=== PATIENT | female | born 1960 | race American Indian/Alaskan Native ===

== ENCOUNTER 2017-06-23 15:38 | Emergency (ER) | payer MEDICAID, OTHER ==
[2017-06-23 16:02] VITALS: BP 138/69
[2017-06-23] MEDS ORDERED: Amoxicillin 500 MG Cap PO ONE (16:12)
--- NOTE | 2017-06-23 16:12 | EDM.PDOC ---
ED HPI GENERAL MEDICAL PROBLEM - General Chief Complaint: ENT Problem Stated Complaint: ears pain [id number] Time Seen by Provider: 06/23/17 16:08 Source of Information: Reports: Patient History Limitations: Reports: No Limitations - History of Present Illness INITIAL COMMENTS - FREE TEXT/NARRATIVE: 56 yo female presents with bilateral ear pain. States that she has been on an antibiotic x 1 month for ear infection but today the pain and drainage is worse. Also on cream for dermatitis but unsure of name, denies pain elsewhere. Onset: Unknown/Unsure Duration: Chronic, Constant, Getting Worse Location: Reports: Head Quality: Reports: Ache Severity: Moderate Improves with: Reports: None Worsens with: Reports: None Associated Symptoms: Reports: No Other Symptoms Ear Pain Score (Numeric/FACES): 5 - Related Data Allergies Allergy/AdvReac Type Severity Reaction Status Date / Time No Known Allergies Allergy Verified 06/23/17 15:58 Home Meds: Home Meds Albuterol Sulfate [Albuterol Sulfate HFA] 1 puff INH QID 12/27/13 [History] Fluticasone/Salmeterol [Advair 250-50 Diskus] 2 puff INH BID 12/27/13 [History] Gabapentin [Neurontin] 600 mg PO BID 02/01/15 [History] Albuterol [Proventil Neb Soln] 1 dose INH QID 07/27/15 [History] Loratadine [Claritin] 1 cap PO DAILY 05/08/16 [History] Nicotine Polacrilex [Nicotine Gum] 1 stick CHEW ASDIRECTED PRN 05/08/16 [History ] Nicotine [Nicoderm CQ] 1 pad TOP DAILY 05/08/16 [History] Omeprazole 1 cap PO DAILY 05/08/16 [History] Tiotropium [Spiriva HandiHaler] 1 cap INH DAILY 05/08/16 [History] Past Medical History - Past Health History Medical/Surgical History: Denies Medical/Surgical History Other HEENT History: Nearsighted Cardiovascular History: Reports: None Respiratory History: Reports: Asthma, COPD Gastrointestinal History: Reports: None Genitourinary History: Reports: None Musculoskeletal History: Reports: Arthritis Neurological History: Reports: Neuropathy, Peripheral Psychiatric History: Reports: None Endocrine/Metabolic History: Reports: None Hematologic History: Reports: Anemia Immunologic History: Reports: None Oncologic (Cancer) History: Reports: None Dermatologic History: Reports: None - Past Surgical History Head Surgeries/Procedures: Reports: None Cardiovascular Surgical History: Reports: None GI Surgical History: Reports: EGD Musculoskeletal Surgical History: Reports: None Social & Family History - Tobacco Use Smoking Status *Q: Never Smoker Years of Tobacco use: 30 Packs/Tins Daily: 0.5 Used Tobacco, but Quit: No Second Hand Smoke Exposure: Yes - Alcohol Use Days Per Week of Alcohol Use: 0 - Recreational Drug Use Recreational Drug Use: No Drug Use in Last 12 Months: No - Living Situation & Occupation Living situation: Reports: with Family Occupation: Retired ED ROS ENT - Review of Systems Review Of Systems: ROS reveals no pertinent complaints other than HPI. ED EXAM, ENT - Physical Exam Exam: See Below Exam Limited By: No Limitations General Appearance: Alert, WD/WN, No Apparent Distress Eye Exam: Bilateral Eye: Normal Inspection, PERRL Ears: Auricular Erythema, Auricular Tenderness, TM Bulging (left), TM Erythema ( bilaterally), TM Fluid (left ear with purulent drainage in canal and dull TM with purulent fluid behind TM) Nose: Normal Inspection, Normal Mucousa, No Blood Mouth/Throat: Normal Inspection, Normal Gums, Normal Lips, Normal Oropharynx, Normal Teeth Respiratory/Chest: No Respiratory Distress, Lungs Clear, Normal Breath Sounds, No Accessory Muscle Use, Chest Non-Tender Cardiovascular: Normal Peripheral Pulses, Regular Rate, Rhythm, No Edema, No Gallop, No JVD, No Murmur, No Rub Neurological: Alert, Oriented, Normal Cognition, Normal Gait Skin: Warm, Dry, Intact, Normal Color, No Rash Course - Vital Signs Last Recorded V/S: Last Vital Signs Temp 98.1 F 06/23/17 15:59 Pulse 70 06/23/17 15:59 Resp 16 06/23/17 15:59 BP 138/69 06/23/17 15:59 Pulse Ox 94 L 06/23/17 15:59 - Orders/Labs/Meds Meds: Medications Discontinued Medications Generic Name Dose Route Start Last Admin Trade Name Freq PRN Reason Stop Dose Admin Amoxicillin 1,000 mg 06/23/17 16:12 06/23/17 16:33 Amoxil PO 06/23/17 16:13 1,000 mg ONETIME ONE Administration Ibuprofen 800 mg 06/23/17 16:15 06/23/17 16:32 Motrin PO 06/23/17 16:16 800 mg ONETIME ONE Administration Departure - Departure Time of Disposition: 16:41 Disposition: Home, Self-Care 01 Condition: Good Clinical Impression: Otitis media Qualifiers: Otitis media type: suppurative Chronicity: chronic Laterality: bilateral Suppurative otitis media location: tubotympanic Qualified Code(s): 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 Continue to use the cream as directed. Follow up with your doctor this week if possible. Return for any worsening symptoms. Care Plan Goals: amoxicllin 1 gm # 30 Motrin 800 # 30
[2017-06-23] MEDS ORDERED: Ibuprofen 800 MG Tab PO ONE (16:15)
== END 2017-06-23 16:50 | disposition home or self-care (01) ==
LOC: DL.ED 15:38
DX: H66.13 Chronic tubotympanic suppurative otitis media, bilateral (principal); J44.9 Chronic obstructive pulmonary disease, unspecified; J45.909 Unspecified asthma, uncomplicated; D64.9 Anemia, unspecified; M19.90 Unspecified osteoarthritis, unspecified site; Z79.899 Other long term (current) drug therapy
CPT/HCPCS: 99282; A9270

== ENCOUNTER 2017-08-18 12:40 | Emergency (ER) | payer MEDICAID, OTHER ==
[2017-08-18 12:48] VITALS: BP 122/67
--- NOTE | 2017-08-18 13:04 | EDM.PDOC ---
ED HPI GENERAL MEDICAL PROBLEM - General Chief Complaint: ENT Problem Stated Complaint: COLD, TROUBLE BREATHING Time Seen by Provider: 08/18/17 13:04 Source of Information: Reports: Patient History Limitations: Reports: No Limitations - History of Present Illness INITIAL COMMENTS - FREE TEXT/NARRATIVE: 56 yo [place] Female c/o SOB and productive cough of green sputum X 1 week. Pt. states she stopped smoking 1 week ago however, she is exposed to 2nd hand smoke w/ low grade fever Onset Date: 08/11/17 Onset Time: 12:00 Duration: Day(s): Location: Reports: Chest Severity: Moderate Improves with: Reports: None Worsens with: Reports: None Context: Reports: Other (Hx. smoker and exposed to 2nd hand smoke) Associated Symptoms: Reports: cough w sputum (green sputum) - Related Data Allergies Allergy/AdvReac Type Severity Reaction Status Date / Time No Known Allergies Allergy Verified 06/23/17 15:58 Home Meds: Home Meds Albuterol Sulfate [Albuterol Sulfate HFA] 1 puff INH QID 12/27/13 [History] Fluticasone/Salmeterol [Advair 250-50 Diskus] 2 puff INH BID 12/27/13 [History] Gabapentin [Neurontin] 600 mg PO BID 02/01/15 [History] Albuterol [Proventil Neb Soln] 1 dose INH QID 07/27/15 [History] Loratadine [Claritin] 1 cap PO DAILY 05/08/16 [History] Nicotine Polacrilex [Nicotine Gum] 1 stick CHEW ASDIRECTED PRN 05/08/16 [History ] Nicotine [Nicoderm CQ] 1 pad TOP DAILY 05/08/16 [History] Omeprazole 1 cap PO DAILY 05/08/16 [History] Tiotropium [Spiriva HandiHaler] 1 cap INH DAILY 05/08/16 [History] Past Medical History - Past Health History Medical/Surgical History: Denies Medical/Surgical History HEENT History: Reports: Impaired Vision Other HEENT History: Nearsighted Cardiovascular History: Reports: None Respiratory History: Reports: Asthma, COPD Gastrointestinal History: Reports: None Genitourinary History: Reports: None Musculoskeletal History: Reports: Arthritis Neurological History: Reports: Neuropathy, Peripheral Psychiatric History: Reports: None Endocrine/Metabolic History: Reports: None Hematologic History: Reports: Anemia Immunologic History: Reports: None Oncologic (Cancer) History: Reports: None Dermatologic History: Reports: None - Past Surgical History Head Surgeries/Procedures: Reports: None Cardiovascular Surgical History: Reports: None GI Surgical History: Reports: EGD Musculoskeletal Surgical History: Reports: None Social & Family History - Family History Family Medical History: Noncontributory - Tobacco Use Smoking Status *Q: Former Smoker Years of Tobacco use: 30 Packs/Tins Daily: 0.5 Used Tobacco, but Quit: Yes Month Tobacco Last Used: ? Second Hand Smoke Exposure: Yes - Caffeine Use Caffeine Use: Reports: Coffee - Alcohol Use Days Per Week of Alcohol Use: 0 - Recreational Drug Use Recreational Drug Use: No Drug Use in Last 12 Months: No - Living Situation & Occupation Living situation: Reports: with Family Occupation: Retired ED ROS ENT - Review of Systems Review Of Systems: See Below Constitutional: Reports: No Symptoms HEENT: Reports: No Symptoms Respiratory: Reports: Shortness of Breath, Cough, Sputum Cardiovascular: Reports: No Symptoms Endocrine: Reports: No Symptoms GI/Abdominal: Reports: No Symptoms : Reports: No Symptoms Musculoskeletal: Reports: No Symptoms Skin: Reports: No Symptoms Neurological: Reports: No Symptoms Psychiatric: Reports: No Symptoms Hematologic/Lymphatic: Reports: No Symptoms Immunologic: Reports: No Symptoms ED EXAM, ENT - Physical Exam Exam: See Below Exam Limited By: No Limitations General Appearance: Alert, WD/WN, No Apparent Distress Eye Exam: Bilateral Eye: PERRL Ears: Normal External Exam Nose: Normal Inspection Mouth/Throat: Normal Inspection, Normal Gums Head: Atraumatic Neck: Normal Inspection, Supple Respiratory/Chest: No Accessory Muscle Use, Decreased Breath Sounds, Rhonchi Cardiovascular: Normal Peripheral Pulses GI/Abdominal: Normal Bowel Sounds Back: Normal Inspection Extremities: Normal Inspection Neurological: Alert, Oriented, CN II-XII Intact Psychiatric: Normal Affect, Normal Mood Skin: Warm, Dry, Intact Lymphatic: No Adenopathy Course - Vital Signs Last Recorded V/S: Last Vital Signs Temp 36.6 C 08/18/17 12:46 Pulse 80 08/18/17 12:46 Resp 18 08/18/17 12:46 BP 122/67 08/18/17 12:46 Pulse Ox 95 08/18/17 12:46 - Orders/Labs/Meds Orders: Active Orders 24 hr Category Date Time Status RT Aerosol Therapy [RC] ASDIRECTED Care 08/18/17 13:10 Active LACTIC ACID [CHEM] Stat Lab 08/18/17 13:18 Received Labs: Laboratory Tests 08/18/17 Range/Units 13:18 WBC 7.9 (5.0-10.0) 10^3/uL RBC 4.86 (4.2-5.4) 10^6/uL Hgb 14.3 (12.0-16.0) g/dL Hct 43.8 (37.0-47.0) % MCV 90.1 (80-100) fL MCH 29.4 (27.0-34.0) pg MCHC 32.6 L (33.0-35.0) g/dL Plt Count 307 (150-450) 10^3/uL Neut % (Auto) 65.8 (42.2-75.2) % Lymph % (Auto) 19.9 L (20.5-50.1) % [place] % (Auto) 7.0 (2-8) % Eos % (Auto) 6.9 H (1.0-3.0) % Baso % (Auto) 0.4 (0.0-1.0) % Meds: Medications Discontinued Medications Generic Name Dose Route Start Last Admin Trade Name Freq PRN Reason Stop Dose Admin Albuterol/Ipratropium 3 ml 08/18/17 13:09 Duoneb 3.0-0.5 Mg/3 Ml NEB 08/18/17 13:10 ONETIME ONE Guaifenesin 600 mg 08/18/17 13:09 08/18/17 13:34 Mucinex PO 08/18/17 13:10 600 mg ONETIME ONE Administration Departure - Departure Time of Disposition: 13:43 Disposition: Home, Self-Care 01 Condition: Good Clinical Impression: Bronchitis, Second hand tobacco smoke exposure - Discharge Information Forms: ED Department Discharge Additional Instructions: Increase intake of Fluids ( Juice / Water) Stop all exposure to Cigarette smoke Take the Medications prescribed as directed: ZITHROMAX PACK USE DIRECTED x 5 days MUCINEX 600mg BID # 30 F/U w/ PCp - My Orders Last 24 Hours: My Active Orders 08/18/17 13:10 RT Aerosol Therapy [RC] ASDIRECTED 08/18/17 13:18 LACTIC ACID [CHEM] Stat - Assessment/Plan Last 24 Hours: My Active Orders 08/18/17 13:10 RT Aerosol Therapy [RC] ASDIRECTED 08/18/17 13:18 LACTIC ACID [CHEM] Stat
[2017-08-18] MEDS ORDERED: guaiFENesin 600 MG Tab.ER PO ONE (13:09)
[2017-08-18] MEDS ORDERED: Albuterol/Ipratropium 3.0-0.5 MG/3 ML Neb Soln NEB ONE (13:09)
== END 2017-08-18 13:53 | disposition home or self-care (01) ==
LOC: DL.ED 12:40
DX: J40 Bronchitis, not specified as acute or chronic (principal); J44.9 Chronic obstructive pulmonary disease, unspecified; Z77.22 Contact with and (suspected) exposure to environmental tobacco smoke (acute) (chronic); Z79.899 Other long term (current) drug therapy; Z87.891 Personal history of nicotine dependence
CPT/HCPCS: 36415; 71020; 83605; 85025; 94640; 99285; A9270

== ENCOUNTER 2017-12-06 19:30 | Emergency (ER) | payer MEDICAID, OTHER ==
[2017-12-06 20:01] VITALS: BP 114/65
[2017-12-06] MEDS ORDERED: Clindamycin HCl 150 MG Cap PO ONE (21:26)
--- NOTE | 2017-12-06 21:26 | EDM.PDOC ---
ED HPI GENERAL MEDICAL PROBLEM - General Chief Complaint: Upper Extremity Injury/Pain Stated Complaint: [id number] SWOLLEN HAND Time Seen by Provider: 12/06/17 20:15 Source of Information: Reports: Patient History Limitations: Reports: No Limitations - History of Present Illness INITIAL COMMENTS - FREE TEXT/NARRATIVE: C/o pain to right hand with redness and swelling tonight, no fever. Unsure what she hit, thinks counter. Denies prior hx of skin infection. Pain from fith finger to mid forearm Right Hand Pain Score (Numeric/FACES): 7 - Related Data Allergies Allergy/AdvReac Type Severity Reaction Status Date / Time No Known Allergies Allergy Verified 12/06/17 20:02 Home Meds: Home Meds Albuterol Sulfate [Albuterol Sulfate HFA] 1 puff INH QID PRN 12/27/13 [History] Gabapentin [Neurontin] 600 mg PO BID 02/01/15 [History] Albuterol [Proventil Neb Soln] 1 dose INH QID PRN 07/27/15 [History] Loratadine [Claritin] 1 cap PO DAILY 05/08/16 [History] Nicotine Polacrilex [Nicotine Gum] 1 stick CHEW ASDIRECTED PRN 05/08/16 [History ] Diclofenac Sodium [Voltaren] 1 tab PO BEDTIME 12/06/17 [History] buPROPion HCl [Wellbutrin Xl] 1 tab PO DAILY 12/06/17 [History] Past Medical History - Past Health History Medical/Surgical History: Denies Medical/Surgical History HEENT History: Reports: Impaired Vision Other HEENT History: Nearsighted Cardiovascular History: Reports: None Respiratory History: Reports: Asthma, COPD Gastrointestinal History: Reports: None Genitourinary History: Reports: None Musculoskeletal History: Reports: Arthritis Neurological History: Reports: Neuropathy, Peripheral Psychiatric History: Reports: None Endocrine/Metabolic History: Reports: None Hematologic History: Reports: Anemia Immunologic History: Reports: None Oncologic (Cancer) History: Reports: None Dermatologic History: Reports: None - Past Surgical History Head Surgeries/Procedures: Reports: None Cardiovascular Surgical History: Reports: None GI Surgical History: Reports: EGD Musculoskeletal Surgical History: Reports: None Social & Family History - Family History Family Medical History: Noncontributory - Tobacco Use Smoking Status *Q: Former Smoker Years of Tobacco use: 30 Packs/Tins Daily: 0.5 Used Tobacco, but Quit: Yes Month Tobacco Last Used: october, Second Hand Smoke Exposure: Yes - Caffeine Use Caffeine Use: Reports: Coffee, Energy Drinks, Soda - Alcohol Use Days Per Week of Alcohol Use: 0 - Recreational Drug Use Recreational Drug Use: No Drug Use in Last 12 Months: No - Living Situation & Occupation Living situation: Reports: with Family Occupation: Retired Review of Systems - Review of Systems Review Of Systems: ROS reveals no pertinent complaints other than HPI. ED EXAM, GENERAL - Physical Exam Exam: See Below Exam Limited By: No Limitations General Appearance: Alert, Mild Distress Eye Exam: Bilateral Eye: EOMI Ears: Normal External Exam Nose: Normal Inspection Throat/Mouth: Normal Inspection Respiratory/Chest: No Respiratory Distress Cardiovascular: Regular Rate, Rhythm Extremities: Arm Pain, Increased Warmth (5th finger) Neurological: Alert, Oriented, Normal Cognition Skin Exam: Warm, Dry, Erythema (right 5th finger and lateral hand), Wound/ Incision (pin point dark scabbed area with surrounding erythema lateral mid 5th finger.) Course - Vital Signs Last Recorded V/S: Last Vital Signs Temp 98.4 F 12/06/17 19:52 Pulse 81 12/06/17 19:52 Resp 18 12/06/17 19:52 BP 114/65 12/06/17 19:52 Pulse Ox 93 L 12/06/17 19:52 - Orders/Labs/Meds Meds: Medications Discontinued Medications Generic Name Dose Route Start Last Admin Trade Name Talatq PRN Reason Stop Dose Admin Clindamycin HCl 300 mg 12/06/17 21:26 12/06/17 21:33 Cleocin PO 12/06/17 21:27 300 mg ONETIME ONE Administration Departure - Departure Time of Disposition: 21:24 Disposition: Home, Self-Care 01 Condition: Good Clinical Impression: Cellulitis of finger of right hand - Discharge Information Instructions: Cellulitis, Adult, [id number] Forms: ED Department Discharge Additional Instructions: Clindamycin 300mg 4 times daily for one week tylenol or ibuprofen for discomfort elevate extremity warm soak to hand 4 times daily recheck in clinic on Saturday, sooner if increased swelling and redness.
== END 2017-12-06 22:05 | disposition home or self-care (01) ==
LOC: DL.ED 19:30
DX: L03.011 Cellulitis of right finger (principal); J44.9 Chronic obstructive pulmonary disease, unspecified; Z79.899 Other long term (current) drug therapy; Z79.01 Long term (current) use of anticoagulants; Z87.891 Personal history of nicotine dependence
CPT/HCPCS: 73120; 99283; A9270

== ENCOUNTER 2018-04-13 19:24 | Emergency (ER) | payer OTHER, MEDICAID ==
[2018-04-13 19:39] VITALS: BP 121/68
[2018-04-13] MEDS ORDERED: Silver Sulfadiazine 1% Crm 50 GM Tube TOP ONE (19:43)
[2018-04-13] MEDS ORDERED: Acetaminophen/HYDROcodone 325-10 MG Tab PO ONE (19:43)
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
== END 2018-04-13 20:00 | disposition home or self-care (01) ==
LOC: DL.ED 19:24
DX: T21.21XA Burn of second degree of chest wall, initial encounter (principal); T31.0 Burns involving less than 10% of body surface; J44.9 Chronic obstructive pulmonary disease, unspecified; M19.90 Unspecified osteoarthritis, unspecified site; Z79.899 Other long term (current) drug therapy; Z88.8 Allergy status to other drugs, medicaments and biological substances; Z87.891 Personal history of nicotine dependence; X12.XXXA Contact with other hot fluids, initial encounter; Y99.0 Civilian activity done for income or pay
CPT/HCPCS: 16025; 99283; A9270-GY

== ENCOUNTER 2018-11-08 22:21 | Emergency (ER) | payer MEDICAID, OTHER ==
[2018-11-08 22:39] VITALS: BP 123/73
[2018-11-08] MEDS ORDERED: Aspirin 81 MG Tab.Chew PO ONE (23:42)
[2018-11-08 23:49] LABS: ANION GAP 13.6; CHLORIDE,CL 103 mmol/L (101-111); SODIUM,NA 139 mmol/L (135-145)
--- NOTE | 2018-11-09 00:18 | EDM.PDOC ---
ED HPI GENERAL MEDICAL PROBLEM - General Chief Complaint: Chest Pain Stated Complaint: NOT FEELING GOOD Time Seen by Provider: 11/09/18 00:18 Source of Information: Reports: Patient History Limitations: Reports: No Limitations - History of Present Illness INITIAL COMMENTS - FREE TEXT/NARRATIVE: ED with c/o "not feeling good" Multiple vague complaints some cough, left arm pain, then legs hurting, achy feeling, feeling hard to breath at times. feels anxious wondering if could be panic attack. Also felt sweaty earlier in day. Symptoms most of day, coughed more when trying to lie down around 6pm. States also trying to quit smoking. No nausea or vomiting. No diarrhea. No ENT c/o. Denied chest pain. left arm Pain Score (Numeric/FACES): 7 - Related Data Allergies Allergy/AdvReac Type Severity Reaction Status Date / Time naproxen Allergy Indigestion Verified 11/08/18 22:45 Home Meds: Home Meds Albuterol Sulfate [Albuterol Sulfate HFA] 1 puff INH QID PRN 12/27/13 [History] Gabapentin [Neurontin] 600 mg PO BID 02/01/15 [History] Albuterol [Proventil Neb Soln] 1 dose INH QID PRN 07/27/15 [History] Loratadine [Claritin] 1 cap PO DAILY 05/08/16 [History] Nicotine Polacrilex [Nicotine Gum] 1 stick CHEW ASDIRECTED PRN 05/08/16 [History ] Diclofenac Sodium [Voltaren] 1 tab PO BEDTIME 12/06/17 [History] buPROPion HCl [Wellbutrin Xl] 1 tab PO DAILY 12/06/17 [History] Past Medical History - Past Health History Medical/Surgical History: Denies Medical/Surgical History HEENT History: Reports: Impaired Vision Other HEENT History: Nearsighted Cardiovascular History: Reports: Other (See Below) Other Cardiovascular History: recent stress test 10/30/18 Respiratory History: Reports: Asthma, COPD Gastrointestinal History: Reports: None Genitourinary History: Reports: None Musculoskeletal History: Reports: Arthritis Neurological History: Reports: Neuropathy, Peripheral Psychiatric History: Reports: None Endocrine/Metabolic History: Reports: None Hematologic History: Reports: Anemia Immunologic History: Reports: None Oncologic (Cancer) History: Reports: None Dermatologic History: Reports: None - Infectious Disease History Infectious Disease History: Reports: None - Past Surgical History Head Surgeries/Procedures: Reports: None Cardiovascular Surgical History: Reports: None GI Surgical History: Reports: EGD Musculoskeletal Surgical History: Reports: None Social & Family History - Family History Family Medical History: Noncontributory - Tobacco Use Smoking Status *Q: Former Smoker Years of Tobacco use: 30 Packs/Tins Daily: 1.5 Used Tobacco, but Quit: Yes Month/Year Tobacco Last Used: Oct, 2018 Second Hand Smoke Exposure: No - Caffeine Use Caffeine Use: Reports: None - Recreational Drug Use Recreational Drug Use: No - Living Situation & Occupation Living situation: Reports: with Family Occupation: Retired ED ROS GENERAL - Review of Systems Review Of Systems: ROS reveals no pertinent complaints other than HPI. ED EXAM, GENERAL - Physical Exam Exam: See Below Exam Limited By: No Limitations General Appearance: Alert, No Apparent Distress Eye Exam: Bilateral Eye: EOMI Ears: Normal External Exam, Normal TMs Nose: Normal Inspection Throat/Mouth: Normal Inspection Head: Atraumatic, Normocephalic Neck: Normal Inspection Respiratory/Chest: No Respiratory Distress, Lungs Clear, Normal Breath Sounds Cardiovascular: Normal Peripheral Pulses, Other (telemetry sinus with rare PVC) GI/Abdominal: Normal Bowel Sounds, Soft, Non-Tender Back Exam: Full Range of Motion Extremities: Normal Inspection, Normal Range of Motion. No: Pedal Edema Neurological: Alert, Oriented, Normal Cognition Psychiatric: Anxious Skin Exam: Warm, Dry, Intact, Normal Color EKG INTERPRETATION Rhythm: NSR Course - Vital Signs Last Recorded V/S: Last Vital Signs Temp 98.4 F 11/08/18 22:38 Pulse 74 11/08/18 22:38 Resp 20 11/08/18 22:38 BP 123/73 11/08/18 22:38 Pulse Ox 98 11/08/18 22:38 - Orders/Labs/Meds Orders: Active Orders 24 hr Category Date Time Status EKG 12 Lead [EKG Documentation Completion] [RC] ROUTINE Care 11/08/18 23:18 Active Labs: Laboratory Tests 11/08/18 11/08/18 11/08/18 Range/Units 23:25 23:25 23:25 WBC 7.6 (5.0-10.0) 10^3/uL RBC 4.65 (4.2-5.4) 10^6/uL Hgb 13.9 (12.0-16.0) g/dL Hct 41.9 (37.0-47.0) % MCV 90.1 (80-100) fL MCH 29.9 (27.0-34.0) pg MCHC 33.2 (33.0-35.0) g/dL Plt Count 295 (150-450) 10^3/uL Neut % (Auto) 62.1 (42.2-75.2) % Lymph % (Auto) 22.7 (20.5-50.1) % [place] % (Auto) 9.6 H (2-8) % Eos % (Auto) 5.1 H (1.0-3.0) % Baso % (Auto) 0.5 (0.0-1.0) % Sodium 139 (135-145) mmol/L Potassium 3.6 (3.6-5.0) mmol/L Chloride 103 (101-111) mmol/L Carbon Dioxide 26.0 (21.0-31.0) mmol/L Anion Gap 13.6 BUN 14 (7-18) mg/dL Creatinine 0.9 (0.6-1.3) mg/dL Est Cr Clr Drug Dosing 63.01 mL/min Estimated GFR (MDRD) > 60 BUN/Creatinine Ratio 15.55 Glucose 123 H (74-105) mg/dL Calcium 8.9 (8.4-10.2) mg/dl Total Bilirubin 0.5 (0.2-1.0) mg/dL AST 18 (10-42) IU/L ALT 11 (10-60) IU/L Alkaline Phosphatase 57 (42-121) IU/L CK-MB (CK-2) 1.80 (0.4-4.7) ng/mL Troponin I < 0.02 (0.00-0.02) ng/ml Total Protein 7.1 (6.7-8.2) g/dl Albumin 3.7 (3.2-5.5) g/dl Globulin 3.4 Albumin/Globulin Ratio 1.09 Meds: Medications Discontinued Medications Generic Name Dose Route Start Last Admin Trade Name Freq PRN Reason Stop Dose Admin Aspirin 324 mg 11/08/18 23:42 11/08/18 23:59 Aspirin PO 11/08/18 23:43 324 mg ONETIME ONE Administration - Re-Assessments/Exams Free Text/Narrative Re-Assessment/Exam: Dozing on side while awaiting lab studies, arouses easily. Labs reviewed with patient. Departure - Departure Time of Disposition: 00:29 Disposition: Home, Self-Care 01 Condition: Good Clinical Impression: Anxiety, Myalgia - Discharge Information *PRESCRIPTION DRUG MONITORING PROGRAM REVIEWED*: No *COPY OF PRESCRIPTION DRUG MONITORING REPORT IN PATIENT TEO: No Instructions: Nonspecific Chest Pain, [id number] Referrals: Alma Avendano PA-C [Primary Care Provider] - Forms: ED Department Discharge Additional Instructions: light activity follow up in clinic this coming week urgent follow up if severe chest pain , dizziness home medications as directed by primary care - My Orders Last 24 Hours: My Active Orders 11/08/18 23:18 EKG 12 Lead [EKG Documentation Completion] [RC] ROUTINE - Assessment/Plan Last 24 Hours: My Active Orders 11/08/18 23:18 EKG 12 Lead [EKG Documentation Completion] [RC] ROUTINE
== END 2018-11-09 00:46 | disposition home or self-care (01) ==
LOC: DL.ED 22:21
DX: F41.9 Anxiety disorder, unspecified (principal); M79.10 Myalgia, unspecified site; Z88.8 Allergy status to other drugs, medicaments and biological substances; Z79.899 Other long term (current) drug therapy; Z87.891 Personal history of nicotine dependence
CPT/HCPCS: 36415; 80053; 82553; 84484; 85025; 87804; 93005; 99285; A9270

== ENCOUNTER 2019-01-28 20:04 | Emergency (ER) | payer MEDICAID, OTHER ==
[2019-01-28] MEDS ORDERED: Naloxone 2 MG/2 ML Syringe IVPUSH ONE ×2 (20:41→22:06)
--- NOTE | 2019-01-28 20:50 | EDM.PDOC ---
ED HPI GENERAL MEDICAL PROBLEM - General Chief Complaint: General Stated Complaint: NOT FEELING WELL, VERY TIRED AND THROWING UP Time Seen by Provider: 01/28/19 20:40 Source of Information: Reports: Patient, Family, RN History Limitations: Reports: No Limitations - History of Present Illness INITIAL COMMENTS - FREE TEXT/NARRATIVE: ED with c/o nausea and vomiting x 10 starting around 6pm, feeling tired. No chest pain, no difficutly with breathing. Medication list reviewed. Patient started suboxone today prescribed by [facility] in [facility]. First dose at 430pm. Patient states initiated because "they thought I was getting addicted to medication for leg pain". States previous last pain medication was 3 weeks ago. - Related Data Allergies Allergy/AdvReac Type Severity Reaction Status Date / Time naproxen Allergy Indigestion Verified 01/28/19 20:10 Home Meds: Home Meds Albuterol Sulfate [Albuterol Sulfate HFA] 1 puff INH QID PRN 12/27/13 [History] Gabapentin [Neurontin] 600 mg PO BID 02/01/15 [History] Albuterol [Proventil Neb Soln] 1 dose INH QID PRN 07/27/15 [History] Loratadine [Claritin] 1 cap PO DAILY 05/08/16 [History] Nicotine Polacrilex [Nicotine Gum] 1 stick CHEW ASDIRECTED PRN 05/08/16 [History ] buPROPion HCl [Wellbutrin Xl] 1 tab PO DAILY 12/06/17 [History] Past Medical History - Past Health History Medical/Surgical History: Denies Medical/Surgical History HEENT History: Reports: Impaired Vision Other HEENT History: Nearsighted Cardiovascular History: Reports: Other (See Below) Other Cardiovascular History: recent stress test 10/30/18 Respiratory History: Reports: Asthma, COPD Gastrointestinal History: Reports: None Genitourinary History: Reports: None Musculoskeletal History: Reports: Arthritis Neurological History: Reports: Neuropathy, Peripheral Psychiatric History: Reports: None Endocrine/Metabolic History: Reports: None Hematologic History: Reports: Anemia Immunologic History: Reports: None Oncologic (Cancer) History: Reports: None Dermatologic History: Reports: None - Infectious Disease History Infectious Disease History: Reports: None - Past Surgical History Head Surgeries/Procedures: Reports: None Cardiovascular Surgical History: Reports: None GI Surgical History: Reports: EGD Musculoskeletal Surgical History: Reports: None Social & Family History - Family History Family Medical History: Noncontributory - Caffeine Use Caffeine Use: Reports: None - Living Situation & Occupation Living situation: Reports: with Family Occupation: Retired ED ROS GENERAL - Review of Systems Review Of Systems: ROS reveals no pertinent complaints other than HPI. ED EXAM, GENERAL - Physical Exam Exam: See Below Exam Limited By: No Limitations General Appearance: Lethargic Eye Exam: Bilateral Eye: EOMI (4), PERRL Ear Exam: Bilateral Ear: TM normal Nose: Normal Inspection Throat/Mouth: Normal Inspection Head: Atraumatic, Normocephalic Neck: Normal Inspection Respiratory/Chest: No Respiratory Distress, Lungs Clear, Decreased Breath Sounds Cardiovascular: Other (Irregular, frequent PVC's, bigemeny and trigemeny, ) GI/Abdominal: Normal Bowel Sounds, Soft Back Exam: Normal Inspection Neurological: Oriented, Normal Cognition Psychiatric: Flat Affect Skin Exam: Warm, Dry, Intact Course - Vital Signs Last Recorded V/S: Last Vital Signs Temp 98.2 F 01/29/19 00:20 Pulse 77 01/29/19 00:20 Resp 18 01/29/19 00:20 BP 118/82 01/29/19 00:20 Pulse Ox 92 L 01/29/19 00:20 - Orders/Labs/Meds Orders: Active Orders 24 hr Category Date Time Status EKG Documentation Completion [RC] URGENT Care 01/28/19 20:23 Active Labs: Laboratory Tests 01/28/19 01/28/19 01/28/19 Range/Units 20:36 20:36 20:36 WBC 9.3 (5.0-10.0) 10^3/uL RBC 4.88 (4.2-5.4) 10^6/uL Hgb 14.3 (12.0-16.0) g/dL Hct 44.2 (37.0-47.0) % MCV 90.6 (80-100) fL MCH 29.3 (27.0-34.0) pg MCHC 32.4 L (33.0-35.0) g/dL Plt Count 255 (150-450) 10^3/uL Neut % (Auto) 82.0 H (42.2-75.2) % Lymph % (Auto) 9.9 L (20.5-50.1) % [place] % (Auto) 5.6 (2-8) % Eos % (Auto) 2.0 (1.0-3.0) % Baso % (Auto) 0.5 (0.0-1.0) % Sodium 139 (135-145) mmol/L Potassium 3.9 (3.6-5.0) mmol/L Chloride 102 (101-111) mmol/L Carbon Dioxide 27.0 (21.0-31.0) mmol/L Anion Gap 13.9 BUN 15 (7-18) mg/dL Creatinine 0.8 (0.6-1.3) mg/dL Est Cr Clr Drug Dosing 67.29 mL/min Estimated GFR (MDRD) > 60 BUN/Creatinine Ratio 18.75 Glucose 145 H (74-105) mg/dL Calcium 9.4 (8.4-10.2) mg/dl Total Bilirubin 0.6 (0.2-1.0) mg/dL AST 20 (10-42) IU/L ALT 13 (10-60) IU/L Alkaline Phosphatase 61 (42-121) IU/L CK-MB (CK-2) 2.10 (0.4-4.7) ng/mL Troponin I < 0.02 (0.00-0.02) ng/ml Total Protein 8.0 (6.7-8.2) g/dl Albumin 4.3 (3.2-5.5) g/dl Globulin 3.7 Albumin/Globulin Ratio 1.16 Urine Color (YELLOW) Urine Appearance (CLEAR) Urine pH (5.0-9.0) Ur Specific [place] (1.005-1.030) Urine Protein (NEGATIVE) Urine Glucose (UA) (NEGATIVE) Urine Ketones (NEGATIVE) Urine Occult Blood (NEGATIVE) Urine Nitrite (NEGATIVE) Urine Bilirubin (NEGATIVE) Urine Urobilinogen (0.2-1.0) mg/dL Ur Leukocyte Esterase (NEGATIVE) Urine RBC /HPF Urine WBC (0-5/HPF) /HPF Ur Epithelial Cells /HPF Amorphous Sediment (0/HPF) /HPF Urine Bacteria (0-FEW/HPF) /HPF Urine Mucus /LPF Urine Opiates Screen (NEGATIVE) Ur Oxycodone Screen (NEGATIVE) Urine Methadone Screen (NEGATIVE) Ur Barbiturates Screen (NEGATIVE) U Tricyclic Antidepress (NEGATIVE) Ur Phencyclidine Scrn (NEGATIVE) Ur Amphetamine Screen (NEGATIVE) U Methamphetamines Scrn (NEGATIVE) Urine MDMA Screen (NEGATIVE) U Benzodiazepines Scrn (NEGATIVE) Urine Cocaine Screen (NEGATIVE) U Marijuana (THC) Screen (NEGATIVE) 01/28/19 01/28/19 Range/Units 21:59 21:59 WBC (5.0-10.0) 10^3/uL RBC (4.2-5.4) 10^6/uL Hgb (12.0-16.0) g/dL Hct (37.0-47.0) % MCV (80-100) fL MCH (27.0-34.0) pg MCHC (33.0-35.0) g/dL Plt Count (150-450) 10^3/uL Neut % (Auto) (42.2-75.2) % Lymph % (Auto) (20.5-50.1) % [place] % (Auto) (2-8) % Eos % (Auto) (1.0-3.0) % Baso % (Auto) (0.0-1.0) % Sodium (135-145) mmol/L Potassium (3.6-5.0) mmol/L Chloride (101-111) mmol/L Carbon Dioxide (21.0-31.0) mmol/L Anion Gap BUN (7-18) mg/dL Creatinine (0.6-1.3) mg/dL Est Cr Clr Drug Dosing mL/min Estimated GFR (MDRD) BUN/Creatinine Ratio Glucose (74-105) mg/dL Calcium (8.4-10.2) mg/dl Total Bilirubin (0.2-1.0) mg/dL AST (10-42) IU/L ALT (10-60) IU/L Alkaline Phosphatase (42-121) IU/L CK-MB (CK-2) (0.4-4.7) ng/mL Troponin I (0.00-0.02) ng/ml Total Protein (6.7-8.2) g/dl Albumin (3.2-5.5) g/dl Globulin Albumin/Globulin Ratio Urine Color Yellow (YELLOW) Urine Appearance Clear (CLEAR) Urine pH 6.0 (5.0-9.0) Ur Specific [place] >= 1.030 (1.005-1.030) Urine Protein Trace H (NEGATIVE) Urine Glucose (UA) Negative (NEGATIVE) Urine Ketones Negative (NEGATIVE) Urine Occult Blood Trace-intact H (NEGATIVE) Urine Nitrite Negative (NEGATIVE) Urine Bilirubin Negative (NEGATIVE) Urine Urobilinogen 0.2 (0.2-1.0) mg/dL Ur Leukocyte Esterase Negative (NEGATIVE) Urine RBC 0-5 /HPF Urine WBC 0-5 (0-5/HPF) /HPF Ur Epithelial Cells Rare /HPF Amorphous Sediment Rare (0/HPF) /HPF Urine Bacteria Rare (0-FEW/HPF) /HPF Urine Mucus Rare /LPF Urine Opiates Screen Negative (NEGATIVE) Ur Oxycodone Screen Negative (NEGATIVE) Urine Methadone Screen Negative (NEGATIVE) Ur Barbiturates Screen Negative (NEGATIVE) U Tricyclic Antidepress Negative (NEGATIVE) Ur Phencyclidine Scrn Negative (NEGATIVE) Ur Amphetamine Screen Negative (NEGATIVE) U Methamphetamines Scrn Negative (NEGATIVE) Urine MDMA Screen Negative (NEGATIVE) U Benzodiazepines Scrn Negative (NEGATIVE) Urine Cocaine Screen Negative (NEGATIVE) U Marijuana (THC) Screen Negative (NEGATIVE) Meds: Medications Discontinued Medications Generic Name Dose Route Start Last Admin Trade Name [place] PRN Reason Stop Dose Admin Naloxone HCl 1 mg 01/28/19 20:41 01/28/19 20:49 Narcan IVPUSH 01/28/19 20:42 1 mg ONETIME ONE Administration Naloxone HCl 1 mg 01/28/19 22:06 01/28/19 22:22 Narcan IVPUSH 01/28/19 22:07 1 mg ONETIME ONE Administration - Re-Assessments/Exams Free Text/Narrative Re-Assessment/Exam: 01/29/19 03:48 More alert following Narcan. Decreased frequency of PVC's. BP stable, Satuartion improved following Narcan administration. Continued monitoring. Vitals stable. Resp rate greater than 10. Dozes, arouses easily to voice. no further emesis. priior to discharge, patient awake alert actively texting on phone. Discussed need to follow up with PCP to discuss any further use of suboxone. Since reporting no pain medication for 3 weeks, Stop medication until seen by PCP. Also to foolow up regarding 01/29/19 03:50 Departure - Departure Time of Disposition: 00:18 Disposition: Home, Self-Care 01 Condition: Good Clinical Impression: Adverse drug effect Qualifiers: Encounter type: initial encounter Qualified Code(s): T50.905A - Adverse effect of unspecified drugs, medicaments and biological substances, initial encounter - Discharge Information *PRESCRIPTION DRUG MONITORING PROGRAM REVIEWED*: No *COPY OF PRESCRIPTION DRUG MONITORING REPORT IN PATIENT TEO: No Forms: ED Department Discharge Additional Instructions: stop suboxone follow up with primary care tomorrow to discuss pain managment plan and for cardiac consult no driving for 24 hours - My Orders Last 24 Hours: My Active Orders 01/28/19 20:23 EKG Documentation Completion [RC] URGENT - Assessment/Plan Last 24 Hours: My Active Orders 01/28/19 20:23 EKG Documentation Completion [RC] URGENT
[2019-01-28 21:00] LABS: ANION GAP 13.9; CHLORIDE,CL 102 mmol/L (101-111); SODIUM,NA 139 mmol/L (135-145)
[2019-01-29 00:21] VITALS: BP 118/82
== END 2019-01-29 01:05 | disposition home or self-care (01) ==
LOC: DL.ED 20:04
DX: R11.2 Nausea with vomiting, unspecified (principal); T40.4X5A Adverse effect of other synthetic narcotics, initial encounter; T50.7X5A Adverse effect of analeptics and opioid receptor antagonists, initial encounter; J44.9 Chronic obstructive pulmonary disease, unspecified; Z88.5 Allergy status to narcotic agent; Z79.899 Other long term (current) drug therapy
CPT/HCPCS: 36415; 71045; 80053; 80305; 81001; 82553; 84484; 85025; 93005; 94762; 96374; 96376; 99284; J2310

== ENCOUNTER 2019-03-01 12:16 | Emergency (ER) | payer BC, OTHER ==
[2019-03-01] MEDS ORDERED: Sodium Chloride 0.9% 10 ML Syringe FLUSH PRN (12:23)
[2019-03-01] MEDS ORDERED: Aspirin 81 MG Tab.Chew PO ONE (12:24)
[2019-03-01] MEDS ORDERED: Nitroglycerin 0.4 MG Tab.SL SL PRN (12:24)
[2019-03-01 12:32] VITALS: BP 136/57
[2019-03-01] MEDS ORDERED: LORazepam 1 MG Tab PO ONE (12:50)
[2019-03-01 13:05] LABS: ANION GAP 15.6; CHLORIDE,CL 107 mmol/L (101-111); SODIUM,NA 140 mmol/L (135-145)
--- NOTE | 2019-03-01 14:33 | EDM.PDOC ---
"Scribed by Betsey Osorio 03/01/19 1411 for Zaida Marquez MD ED HPI GENERAL MEDICAL PROBLEM - General Chief Complaint: Chest Pain Stated Complaint: CHEST PAINS Time Seen by Provider: 03/01/19 12:20 Source of Information: Reports: Patient, RN, RN Notes Reviewed History Limitations: Reports: No Limitations - History of Present Illness INITIAL COMMENTS - FREE TEXT/NARRATIVE: Patient presents to ER with complaint of SOB with exertion that started yesterday. Headaches started yesterday. She has been coughing for a week. States no fever but coughing up green sputum. Last week states was lightheaded and had to stand still from doing her general housework of lifting heavy pots and pans. She rates her pain 7/10. She has taken nothing for the pain, states comes and goes. She did take 1000 mg tylenol at 1500 yesterday for ROMAN, states that helped some. Chest Pain Score (Numeric/FACES): 7 - Related Data Allergies Allergy/AdvReac Type Severity Reaction Status Date / Time naproxen Allergy Indigestion Verified 03/01/19 12:32 Home Meds: Home Meds Albuterol Sulfate [Albuterol Sulfate HFA] 1 puff INH QID PRN 12/27/13 [History] Gabapentin [Neurontin] 600 mg PO BID 02/01/15 [History] Albuterol [Proventil Neb Soln] 1 dose INH QID PRN 07/27/15 [History] Loratadine [Claritin] 1 cap PO DAILY 05/08/16 [History] Nicotine Polacrilex [Nicotine Gum] 1 stick CHEW ASDIRECTED PRN 05/08/16 [History ] buPROPion HCl [Wellbutrin Xl] 1 tab PO DAILY 12/06/17 [History] Oxybutynin [Oxybutynin ER] 5 mg PO DAILY 03/01/19 [History] Pantoprazole Sodium 40 mg PO DAILY 03/01/19 [History] Past Medical History - Past Health History Medical/Surgical History: Denies Medical/Surgical History HEENT History: Reports: Impaired Vision Other HEENT History: Nearsighted Cardiovascular History: Reports: Other (See Below) Other Cardiovascular History: recent stress test 10/30/18 Respiratory History: Reports: Asthma, COPD Gastrointestinal History: Reports: None Genitourinary History: Reports: None 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: Musculoskeletal History: Reports: Arthritis Neurological History: Reports: Neuropathy, Peripheral Psychiatric History: Reports: None Endocrine/Metabolic History: Reports: None Hematologic History: Reports: Anemia Immunologic History: Reports: None Oncologic (Cancer) History: Reports: None Dermatologic History: Reports: None - Infectious Disease History Infectious Disease History: Reports: None - Past Surgical History Head Surgeries/Procedures: Reports: None Cardiovascular Surgical History: Reports: None GI Surgical History: Reports: EGD Musculoskeletal Surgical History: Reports: None Social & Family History - Family History Family Medical History: Noncontributory - Caffeine Use Caffeine Use: Reports: None - Living Situation & Occupation Living situation: Reports: with Family Occupation: Retired ED ROS GENERAL - Review of Systems Review Of Systems: ROS reveals no pertinent complaints other than HPI. ED EXAM, GENERAL - Physical Exam Exam: See Below Exam Limited By: No Limitations General Appearance: Alert, WD/WN, No Apparent Distress, Anxious Eye Exam: Bilateral Eye: Normal Inspection Ears: Normal External Exam, Normal Canal, Hearing Grossly Normal, Normal TMs Nose: Normal Inspection, Normal Mucosa, No Blood Throat/Mouth: Normal Lips, Normal Oropharynx, Normal Voice, No Airway Compromise Head: Atraumatic, Normocephalic Neck: Normal Inspection, Supple, Non-Tender, Full Range of Motion. No: Lymphadenopathy (L), Lymphadenopathy (R) Respiratory/Chest: No Respiratory Distress, Lungs Clear, Normal Breath Sounds, No Accessory Muscle Use, Chest Non-Tender Cardiovascular: Normal Peripheral Pulses, Regular Rate, Rhythm, No Edema, No Murmur, Extra Beats GI/Abdominal: Normal Bowel Sounds, Soft, Non-Tender, No Organomegaly, No Distention, No Abnormal Bruit, No Mass Back Exam: Normal Inspection Extremities: Normal Inspection, Normal Range of Motion, Non-Tender, Normal Capillary Refill, No Pedal Edema Neurological: Alert, Oriented, CN II-XII Intact, Normal Cognition, Normal Gait, No Motor/Sensory Deficits Psychiatric: Anxious, Depressed Mood, Tearful Skin Exam: Warm, Dry, Intact, Normal Color, No Rash EKG INTERPRETATION EKG Date: 03/01/19 Time: 12:34 Rhythm: Other (sinus rhythm with multiple PVCs.) Rate (Beats/Min): 66 [place]: Normal P-Wave: Present QRS: Normal ST-T: Normal QT: Normal Comparison: NA - No Prior EKG Course - Vital Signs Last Recorded V/S: Last Vital Signs Temp 36.9 C 03/01/19 12:20 Pulse Resp 16 03/01/19 12:20 BP 136/57 L 03/01/19 12:20 Pulse Ox 97 03/01/19 12:20 - Orders/Labs/Meds Orders: Active Orders 24 hr Category Date Time Status EKG 12 Lead [EKG Documentation Completion] [RC] STAT Care 03/01/19 12:23 Active Peripheral IV Care [RC] . DIRECTED Care 03/01/19 12:24 Active Chest 1V Frontal [CR] Stat Exams 03/01/19 12:23 Taken Head wo Cont [CT] Urgent Exams 03/01/19 13:13 Taken Nitroglycerin [Nitrostat] Med 03/01/19 12:24 Active 0.4 mg SL Q5M PRN Sodium Chloride 0.9% [Saline Flush] Med 03/01/19 12:23 Active 10 ml FLUSH ASDIRECTED PRN Peripheral IV Insertion Adult [OM.PC] Stat Oth 03/01/19 12:23 Ordered Medication Orders Nitroglycerin (Nitrostat) 0.4 mg SL Q5M PRN PRN Reason: Chest Pain Sodium Chloride (Saline Flush) 10 ml FLUSH ASDIRECTED PRN PRN Reason: Keep Vein Open Last Admin: 03/01/19 12:58 Dose: 10 ml Labs: Laboratory Tests 03/01/19 03/01/19 03/01/19 Range/Units 12:32 12:32 12:32 WBC 5.6 (5.0-10.0) 10^3/uL RBC 4.67 (4.2-5.4) 10^6/uL Hgb 13.7 (12.0-16.0) g/dL Hct 41.7 (37.0-47.0) % MCV 89.3 (80-100) fL MCH 29.3 (27.0-34.0) pg MCHC 32.9 L (33.0-35.0) g/dL Plt Count 267 (150-450) 10^3/uL Neut % (Auto) 43.7 (42.2-75.2) % Lymph % (Auto) 39.1 (20.5-50.1) % [place] % (Auto) 6.9 (2-8) % Eos % (Auto) 9.6 H (1.0-3.0) % Baso % (Auto) 0.7 (0.0-1.0) % D-Dimer, Quantitative 122 (0-400) ng/mL Sodium 140 (135-145) mmol/L Potassium 3.6 (3.6-5.0) mmol/L Chloride 107 (101-111) mmol/L Carbon Dioxide 21.0 (21.0-31.0) mmol/L Anion Gap 15.6 BUN 15 (7-18) mg/dL Creatinine 0.8 (0.6-1.3) mg/dL Est Cr Clr Drug Dosing 70.01 mL/min Estimated GFR (MDRD) > 60 BUN/Creatinine Ratio 18.75 Glucose 137 H (74-105) mg/dL Calcium 9.0 (8.4-10.2) mg/dl Total Bilirubin 0.6 (0.2-1.0) mg/dL AST 24 (10-42) IU/L ALT 13 (10-60) IU/L Alkaline Phosphatase 58 (42-121) IU/L Troponin I < 0.02 (0.00-0.02) ng/ml Total Protein 7.2 (6.7-8.2) g/dl Albumin 3.9 (3.2-5.5) g/dl Globulin 3.3 Albumin/Globulin Ratio 1.18 Lipase 32 (22-51) U/L Meds: Medications Generic Name Dose Route Start Last Admin Trade Name Freq PRN Reason Stop Dose Admin Nitroglycerin 0.4 mg 03/01/19 12:24 Nitrostat SL Q5M PRN Chest Pain Sodium Chloride 10 ml 03/01/19 12:23 03/01/19 12:58 Saline Flush FLUSH 10 ml ASDIRECTED PRN Administration Keep Vein Open Discontinued Medications Generic Name Dose Route Start Last Admin Trade Name Freq PRN Reason Stop Dose Admin Aspirin 324 mg 03/01/19 12:24 03/01/19 12:55 Aspirin PO 03/01/19 12:25 324 mg ONETIME ONE Administration Lorazepam 1 mg 03/01/19 12:50 03/01/19 12:54 Ativan PO 03/01/19 12:51 1 mg ONETIME ONE Administration - Radiology Interpretation Free Text/Narrative:: [facility] Final Radiology Report Call: [phone] assistance Online chat: [email or web address] Name: DOMI LEBRON Age: 58Years F Date: 03/01/2019 SSN: -- : 1960 Study: CT HEAD WO Requesting Physician: ZAIDA MARQUEZ Images: 147 Addl Studies: Provided Clinical History: Contrast: Without Contrast Medium: Contrast Amount: Contrast Method: Page 1 of 2 EXAM: CT Head Without Contrast EXAM DATE/TIME: 03/01/2019 1:44 PM CLINICAL HISTORY: 58 years old, female; Signs and symptoms; Other: Headache, confusion, acute narcolepsy TECHNIQUE: Imaging protocol: Axial computed tomography images of the head/brain without contrast. Coronal and sagittal reformatted images were created and reviewed. Radiation optimization: All CT scans at this facility use at least one of these dose optimization techniques: automated exposure control; mA and/or kV adjustment per patient size (includes targeted exams where dose is matched to clinical indication); or iterative reconstruction. COMPARISON: No relevant prior studies available. FINDINGS: Brain: Normal. No hemorrhage. No significant white matter disease. No edema. Ventricles: Normal. No ventriculomegaly. Bones/joints: Unremarkable. No acute fracture. Sinuses: Visualized sinuses are unremarkable. No acute sinusitis. Mastoid air cells: Visualized mastoid air cells are unremarkable. No mastoid effusion. Soft tissues: Unremarkable. IMPRESSION: There is no acute intracranial abnormality. DOMI LEBRON | Final Radiology Report CONFIDENTIALITY STATEMENT This report is intended only for use by the referring physician, and only in accordance with law. If you received this in error, call [phone]. Page 2 of 2 Thank you for allowing us to participate in the care of your patient. Dictated and Authenticated by: Micky Stallings MD 03/01/2019 1:54 PM Central Time ([place] & [place]) [facility] Final Radiology Report Call: [phone] assistance Online chat: [email or web address] Name: DOMI LEBRON Age: 58Years F Date: 03/01/2019 SSN: -- : 1960 Study: XR CHEST 1 VIEW FRONTAL Requesting Physician: ZAIDA MARQUEZ Images: 1 Addl Studies: Provided Clinical History: Contrast: Contrast Medium: Contrast Amount: Contrast Method: CONFIDENTIALITY STATEMENT This report is intended only for use by the referring physician, and only in accordance with law. If you received this in error, call [phone]. Page 1 of 1 EXAM: XR Chest, 1 View EXAM DATE/TIME: 03/01/2019 12:23 PM CLINICAL HISTORY: 58 years old, female; Chest pain TECHNIQUE: Imaging protocol: XR of the chest, 1 view. COMPARISON: CR Chest 1V Frontal 01/28/2019 8:26 PM FINDINGS: Lungs: Unremarkable. No consolidation. Pleural space: Unremarkable. No pleural effusion. No pneumothorax. Heart/Mediastinum: Unremarkable. No cardiomegaly. Bones/joints: Unremarkable. IMPRESSION: No acute findings. Thank you for allowing us to participate in the care of your patient. Dictated and Authenticated by: Micky Stallings MD 03/01/2019 1:15 PM Central Time ([place] & [place]) - Re-Assessments/Exams Free Text/Narrative Re-Assessment/Exam: 03/01/19 14:21 Pt has been under a great deal of emotional stress due to family issues. Her symptoms resolved following tx with Ativan 1mg PO x1 dose. I think she is at very low risk of ACS/AMI or any imminent or serious medical problem that would warrant admission at this time. I have advised the pt to f/u in clinic tomorrow for recheck. 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 Follow up in clinic tomorrow for recheck on chest pain, stress/anxiety, and narcolepsy. Do not drive until you have been cleared to do so by your doctor after you have had an evaluation for narcolepsy. Return to ER if worse at any time. - My Orders Last 24 Hours: My Active Orders 03/01/19 12:23 EKG 12 Lead [EKG Documentation Completion] [RC] STAT Chest 1V Frontal [CR] Stat Sodium Chloride 0.9% [Saline Flush] 10 ml FLUSH ASDIRECTED PRN Peripheral IV Insertion Adult [OM.PC] Stat 03/01/19 12:24 Peripheral IV Care [RC] . DIRECTED Nitroglycerin [Nitrostat] 0.4 mg SL Q5M PRN 03/01/19 13:13 Head wo Cont [CT] Urgent - Assessment/Plan Last 24 Hours: My Active Orders 03/01/19 12:23 EKG 12 Lead [EKG Documentation Completion] [RC] STAT Chest 1V Frontal [CR] Stat Sodium Chloride 0.9% [Saline Flush] 10 ml FLUSH ASDIRECTED PRN Peripheral IV Insertion Adult [OM.PC] Stat 03/01/19 12:24 Peripheral IV Care [RC] . DIRECTED Nitroglycerin [Nitrostat] 0.4 mg SL Q5M PRN 03/01/19 13:13 Head wo Cont [CT] Urgent I have read and agree with the documentation that has been completed regarding this visit. By signing this record, I attest that the documentation was completed in my physical presence and is an accurate record of the encounter."
== END 2019-03-01 14:41 | disposition home or self-care (01) ==
LOC: DL.ED 12:16
DX: F41.9 Anxiety disorder, unspecified (principal); F43.0 Acute stress reaction; J44.9 Chronic obstructive pulmonary disease, unspecified; R07.89 Other chest pain; G47.429 Narcolepsy in conditions classified elsewhere without cataplexy; Z88.5 Allergy status to narcotic agent; Z79.899 Other long term (current) drug therapy
CPT/HCPCS: 36415; 70450; 71045; 80053; 83690; 84484; 85025; 85379; 93005; 99285; A9270

== ENCOUNTER 2019-04-21 13:14 | Emergency (ER) | payer MEDICAID, OTHER ==
--- NOTE | 2019-04-21 13:34 | EDM.PDOC ---
ED HPI GENERAL MEDICAL PROBLEM - General Chief Complaint: ENT Problem Stated Complaint: EAR [id number] Time Seen by Provider: 04/21/19 13:25 Source of Information: Reports: Patient History Limitations: Reports: No Limitations - History of Present Illness INITIAL COMMENTS - FREE TEXT/NARRATIVE: This 58 yo female patient reports to the ED with erythema and pain in her right ear. The patient reports she started noticing the symptoms "a couple of days ago ", but has not been able to get into her primary care facility. The patient reports she has had problems with her right ear in the past which required several different antibiotics before it started getting better. Onset Date: 04/18/19 Duration: Constant, Getting Worse Location: Reports: Head (right ear and right side of face) Quality: Reports: Ache, Sharp Severity: Moderate Improves with: Reports: None Worsens with: Reports: None Context: Reports: Other Associated Symptoms: Reports: No Other Symptoms - Related Data Allergies Allergy/AdvReac Type Severity Reaction Status Date / Time naproxen Allergy Indigestion Verified 04/21/19 13:26 Home Meds: Home Meds Albuterol Sulfate [Albuterol Sulfate HFA] 1 puff INH QID PRN 12/27/13 [History] Gabapentin [Neurontin] 600 mg PO BID 02/01/15 [History] Albuterol [Proventil Neb Soln] 1 dose INH QID PRN 07/27/15 [History] Loratadine [Claritin] 1 cap PO DAILY 05/08/16 [History] Nicotine Polacrilex [Nicotine Gum] 1 stick CHEW ASDIRECTED PRN 05/08/16 [History ] buPROPion HCl [Wellbutrin Xl] 1 tab PO DAILY 12/06/17 [History] Oxybutynin [Oxybutynin ER] 5 mg PO DAILY 03/01/19 [History] Pantoprazole Sodium 40 mg PO DAILY 03/01/19 [History] Past Medical History - Past Health History Medical/Surgical History: Denies Medical/Surgical History HEENT History: Reports: Impaired Vision Other HEENT History: Nearsighted Cardiovascular History: Reports: Other (See Below) Other Cardiovascular History: recent stress test 10/30/18 Respiratory History: Reports: Asthma, COPD Gastrointestinal History: Reports: None Genitourinary History: Reports: None 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: Musculoskeletal History: Reports: Arthritis Neurological History: Reports: Neuropathy, Peripheral Psychiatric History: Reports: None Endocrine/Metabolic History: Reports: None Hematologic History: Reports: Anemia Immunologic History: Reports: None Oncologic (Cancer) History: Reports: None Dermatologic History: Reports: None - Infectious Disease History Infectious Disease History: Reports: None - Past Surgical History Head Surgeries/Procedures: Reports: None Cardiovascular Surgical History: Reports: None GI Surgical History: Reports: EGD Musculoskeletal Surgical History: Reports: None Social & Family History - Family History Family Medical History: Noncontributory - Caffeine Use Caffeine Use: Reports: None - Living Situation & Occupation Living situation: Reports: with Family Occupation: Retired ED ROS ENT - Review of Systems Review Of Systems: ROS reveals no pertinent complaints other than HPI. ED EXAM, ENT - Physical Exam Exam: See Below Exam Limited By: No Limitations General Appearance: Alert, WD/WN, Moderate Distress Eye Exam: Bilateral Eye: EOMI, Normal Inspection, PERRL Ears: Canal Swelling (right), TM Bulging (right), TM Erythema (right ) Nose: Normal Inspection, Normal Mucousa, No Blood Mouth/Throat: Normal Inspection, Normal Gums, Normal Lips, Normal Oropharynx, Normal Teeth Head: Atraumatic, Normocephalic Neck: Normal Inspection, Supple, Non-Tender, Full Range of Motion Respiratory/Chest: No Respiratory Distress, Lungs Clear, Normal Breath Sounds, No Accessory Muscle Use, Chest Non-Tender Cardiovascular: Normal Peripheral Pulses, Regular Rate, Rhythm, No Edema, No Gallop, No JVD, No Murmur, No Rub GI/Abdominal: Normal Bowel Sounds, Soft, Non-Tender, No Organomegaly, No Distention, No Abnormal Bruit, No Mass (Female) Exam: Deferred Rectal (Female) Exam: Deferred Extremities: Normal Inspection, Normal Range of Motion, Non-Tender Neurological: Alert, Oriented, CN II-XII Intact, Normal Gait Psychiatric: Normal Affect, Normal Mood Skin: Erythema (right ear ) Lymphatic: No Adenopathy Departure - Departure Time of Disposition: 13:30 Disposition: Home, Self-Care 01 Condition: Fair Clinical Impression: Cellulitis of right ear Right otitis media Qualifiers: Otitis media type: suppurative Chronicity: acute Recurrence: recurrent Spontaneous tympanic membrane rupture: without spontaneous rupture Qualified Code(s): H66.004 - Acute suppurative otitis media without spontaneous rupture of ear drum, recurrent, right ear - Discharge Information *PRESCRIPTION DRUG MONITORING PROGRAM REVIEWED*: Not Applicable *COPY OF PRESCRIPTION DRUG MONITORING REPORT IN PATIENT TEO: Not Applicable Instructions: Otitis Media, Adult, [id number], Cellulitis, Adult, Easy-to- Read Forms: ED Department Discharge Care Plan Goals: The patient was advised of the examination results during the visit. The patient was given a script for Augmentin (875/125) to take 1 by mouth 2 times per day for 10 days. The patient was encouraged to follow-up with her primary care facility in the next week. If the patient has any additional symptoms or concerns, the patient should either return to the emergency department or visit her primary care facility.
[2019-04-21 13:40] VITALS: BP 125/74
== END 2019-04-21 13:37 | disposition home or self-care (01) ==
LOC: DL.ED 13:14
DX: H66.004 Acute suppurative otitis media without spontaneous rupture of ear drum, recurrent, right ear (principal); H60.11 Cellulitis of right external ear; J44.9 Chronic obstructive pulmonary disease, unspecified; Z79.899 Other long term (current) drug therapy; Z88.8 Allergy status to other drugs, medicaments and biological substances
CPT/HCPCS: 99283

== ENCOUNTER 2019-11-22 16:18 | Emergency (ER) | payer MEDICAID, OTHER ==
[2019-11-22 16:30] VITALS: BP 134/64
[2019-11-22] MEDS ORDERED: Albuterol/Ipratropium 3.0-0.5 MG/3 ML Neb Soln NEB ONE (16:44)
--- NOTE | 2019-11-22 16:53 | EDM.PDOC ---
ED HPI GENERAL MEDICAL PROBLEM - General Chief Complaint: Respiratory Problem Stated Complaint: HARD TIME BREATHING/COUGH/COLD Time Seen by Provider: 11/22/19 16:40 Source of Information: Reports: Patient History Limitations: Reports: No Limitations - History of Present Illness INITIAL COMMENTS - FREE TEXT/NARRATIVE: 58 year old female who presents to the ER with complains of a productive cough (yellow or clear sputum intermittently), SOB and runny nose x one week. Patient reports she was diagnosed with bronchitis in September and treated. She felt better until one week ago when symptoms resurface. She reports she has tried her neb treatment with little relief. Her last neb treatment was one hour prior to ER visit. She denies any fever/chills. CP, palpations and leg swelling. She quit smoking a couple of years ago. Ahe admits to a history of bronchitis. - Related Data Allergies Allergy/AdvReac Type Severity Reaction Status Date / Time acetaminophen Allergy Itching Verified 11/22/19 16:23 [From Tylenol-Codeine #3] codeine Allergy Itching Verified 11/22/19 16:23 [From Tylenol-Codeine #3] naproxen Allergy Indigestion Verified 11/22/19 16:23 Home Meds: Home Meds Albuterol Sulfate [Albuterol Sulfate HFA] 1 puff INH QID PRN 12/27/13 [History] Gabapentin [Neurontin] 600 mg PO BID 02/01/15 [History] Albuterol [Proventil Neb Soln] 1 dose INH QID PRN 07/27/15 [History] Loratadine [Claritin] 1 cap PO DAILY 05/08/16 [History] Nicotine Polacrilex [Nicotine Gum] 1 stick CHEW ASDIRECTED PRN 05/08/16 [History ] buPROPion HCl [Wellbutrin Xl] 1 tab PO DAILY 12/06/17 [History] Oxybutynin [Oxybutynin ER] 5 mg PO DAILY 03/01/19 [History] Pantoprazole Sodium 40 mg PO DAILY 03/01/19 [History] Past Medical History - Past Health History Medical/Surgical History: Denies Medical/Surgical History HEENT History: Reports: Impaired Vision Other HEENT History: Nearsighted Cardiovascular History: Reports: Other (See Below) Other Cardiovascular History: recent stress test 10/30/18 Respiratory History: Reports: Asthma, COPD Gastrointestinal History: Reports: None Genitourinary History: Reports: None 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 History: Reports: Musculoskeletal History: Reports: Arthritis Neurological History: Reports: Neuropathy, Peripheral Psychiatric History: Reports: None Endocrine/Metabolic History: Reports: None Hematologic History: Reports: Anemia Immunologic History: Reports: None Oncologic (Cancer) History: Reports: None Dermatologic History: Reports: None - Infectious Disease History Infectious Disease History: Reports: None - Past Surgical History Head Surgeries/Procedures: Reports: None Cardiovascular Surgical History: Reports: None GI Surgical History: Reports: EGD Musculoskeletal Surgical History: Reports: None Social & Family History - Family History Family Medical History: Noncontributory - Tobacco Use Smoking Status *Q: Former Smoker Used Tobacco, but Quit: No Month/Year Tobacco Last Used: 2017 - Caffeine Use Caffeine Use: Reports: Coffee - Recreational Drug Use Recreational Drug Use: No - Living Situation & Occupation Living situation: Reports: with Family Occupation: Retired ED ROS GENERAL - Review of Systems Review Of Systems: Comprehensive ROS is negative, except as noted in HPI. ED EXAM, GENERAL - Physical Exam Exam: See Below Exam Limited By: No Limitations General Appearance: Alert, Mild Distress Ears: Normal External Exam, Normal Canal, Hearing Grossly Normal, Normal TMs Ear Exam: Bilateral Ear: Auricle Normal, Canal Normal, TM normal Nose: Normal Inspection, Normal Mucosa, No Blood Throat/Mouth: Normal Inspection, Normal Lips, Normal Teeth, Normal Gums, Normal Oropharynx, Normal Voice, No Airway Compromise Head: Atraumatic, Normocephalic Neck: Normal Inspection, Supple, Non-Tender, Full Range of Motion Respiratory/Chest: No Respiratory Distress, No Accessory Muscle Use, Chest Non- Tender, Decreased Breath Sounds (in bilateral lower lobes no crackles or wheezing) Cardiovascular: Normal Peripheral Pulses, Regular Rate, Rhythm, No Edema, No Gallop, No JVD, No Murmur, No Rub GI/Abdominal: Normal Bowel Sounds, Soft, Non-Tender, No Organomegaly, No Distention, No Abnormal Bruit, No Mass Extremities: Normal Inspection, Normal Range of Motion, Non-Tender, Normal Capillary Refill, No Pedal Edema Neurological: Alert, Oriented, CN II-XII Intact, Normal Cognition, Normal Gait, Normal Reflexes Psychiatric: Normal Affect, Normal Mood Skin Exam: Warm, Dry, Intact, Normal Color, No Rash Lymphatic: No Adenopathy Course - Vital Signs Last Recorded V/S: Last Vital Signs Temp 96.9 F 11/22/19 16:28 Pulse 89 11/22/19 16:58 Resp 20 11/22/19 16:28 BP 134/64 11/22/19 16:28 Pulse Ox 93 L 11/22/19 16:58 - Orders/Labs/Meds Orders: Active Orders 24 hr Category Date Time Status RT Aerosol Therapy [RC] ASDIRECTED Care 11/22/19 16:45 Active Chest 2V [CR] Stat Exams 11/22/19 16:45 Taken Meds: Medications Discontinued Medications Generic Name Dose Route Start Last Admin Trade Name [place] PRN Reason Stop Dose Admin Albuterol/Ipratropium 3 ml 11/22/19 16:44 11/22/19 16:57 Duoneb 3.0-0.5 Mg/3 Ml NEB 11/22/19 16:45 3 ml ONETIME ONE Administration Prednisone 40 mg 11/22/19 17:42 Prednisone PO 11/22/19 17:43 ONETIME ONE - Radiology Interpretation Free Text/Narrative:: PROCEDURE INFORMATION: Exam: XR Chest, 2 Views Exam date and time: 11/22/2019 4:50 PM Age: 58 years old Clinical indication: Shortness of breath TECHNIQUE: Imaging protocol: XR of the chest Views: 2 views. COMPARISON: CR Chest 2V 09/28/2019 2:29 PM FINDINGS: Lungs: Unremarkable. No consolidation. Pleural space: Unremarkable. No pleural effusion. No pneumothorax. Heart/Mediastinum: Unremarkable. No cardiomegaly. Bones/joints: Unremarkable. IMPRESSION: No acute findings. Thank you for allowing us to participate in the care of your patient. - Re-Assessments/Exams Free Text/Narrative Re-Assessment/Exam: DuoNeb administered with some relief. Review chest xray results with patient. Prednisone 40 administered with an RX for short burst of prednisone given to patient. Departure - Departure Time of Disposition: 17:45 Disposition: Home, Self-Care 01 Condition: Fair Clinical Impression: Bronchitis - Discharge Information Instructions: Acute Bronchitis, Adult, [id number] Forms: ED Department Discharge Additional Instructions: Follow up with PCP in three days. Encouraged deep breathing and take OTC medications for cough. Sepsis Event Note - Evaluation Sepsis Screening Result: No Definite Risk - Focused Exam Vital Signs: Vital Signs Temp Pulse Resp BP Pulse Ox Pulse Ox 11/22/19 16:58 89 93 L 11/22/19 16:28 96.9 F 60 20 134/64 94 L Date Exam was Performed: 11/22/19 Time Exam was Performed: 17:45 - My Orders Last 24 Hours: My Active Orders 11/22/19 16:45 RT Aerosol Therapy [RC] ASDIRECTED Chest 2V [CR] Stat - Assessment/Plan Last 24 Hours: My Active Orders 11/22/19 16:45 RT Aerosol Therapy [RC] ASDIRECTED Chest 2V [CR] Stat
[2019-11-22 17:02] VITALS: PULSE 89
[2019-11-22] MEDS ORDERED: predniSONE 20 MG Tab PO ONE (17:42)
== END 2019-11-22 17:54 | disposition home or self-care (01) ==
LOC: DL.ED 16:18
DX: J40 Bronchitis, not specified as acute or chronic (principal); Z86.2 Personal history of diseases of the blood and blood-forming organs and certain disorders involving the immune mechanism; Z88.8 Allergy status to other drugs, medicaments and biological substances; Z88.5 Allergy status to narcotic agent; Z79.899 Other long term (current) drug therapy; Z87.891 Personal history of nicotine dependence
CPT/HCPCS: 71046; 94640; 99285; A9270; J7620-GY

== ENCOUNTER 2020-05-25 12:46 | Emergency (ER) | payer MEDICAID ==
[2020-05-25 12:55] VITALS: BP 113/56; PULSE 72
--- NOTE | 2020-05-25 13:11 | EDM.PDOC ---
ED HPI GENERAL MEDICAL PROBLEM - General Stated Complaint: BAD COLD AND HURTS WHEN URINATES [id number] Time Seen by Provider: 05/25/20 12:55 Source of Information: Reports: Patient History Limitations: Reports: No Limitations - History of Present Illness INITIAL COMMENTS - FREE TEXT/NARRATIVE: This 59 yo female patient reports to the ED with 2 day history of a cough, a 1 day history of dysuria and a 1 day history of nausea/vomiting. The patient reports she has tried to take Mucinex, Dayquil and another cold medication with no symptom relief. The patient reports she attempted to get into the [facility] today, but could not get an appointment today. The patient reports she has not been around anyone with known COVID. The patient reports she has tried to stop smoking (but still smokes a little), but she still chews tobacco intermittently. 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) Bladder Pain Score (Numeric/FACES): 8 - Related Data Allergies Allergy/AdvReac Type Severity Reaction Status Date / Time acetaminophen Allergy Itching Verified 05/25/20 12:49 [From Tylenol-Codeine #3] codeine Allergy Itching Verified 05/25/20 12:49 [From Tylenol-Codeine #3] naproxen Allergy Indigestion Verified 05/25/20 12:49 Home Meds: Home Meds Albuterol Sulfate [Albuterol Sulfate HFA] 1 puff INH QID PRN 12/27/13 [History] Gabapentin [Neurontin] 600 mg PO BID 02/01/15 [History] Albuterol [Proventil Neb Soln] 1 dose INH QID PRN 07/27/15 [History] Loratadine [Claritin] 1 cap PO DAILY 05/08/16 [History] Nicotine Polacrilex [Nicotine Gum] 1 stick CHEW ASDIRECTED PRN 05/08/16 [History] Oxybutynin [Oxybutynin ER] 5 mg PO DAILY 03/01/19 [History] Pantoprazole Sodium 40 mg PO DAILY 03/01/19 [History] Past Medical History - Past Health History Medical/Surgical History: Denies Medical/Surgical History HEENT History: Reports: Impaired Vision Other HEENT History: Nearsighted Cardiovascular History: Reports: Other (See Below) Other Cardiovascular History: recent stress test 10/30/18 Respiratory History: Reports: Asthma, COPD Gastrointestinal History: Reports: None Genitourinary History: Reports: None 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: Musculoskeletal History: Reports: Arthritis Neurological History: Reports: Neuropathy, Peripheral Psychiatric History: Reports: None Endocrine/Metabolic History: Reports: None Hematologic History: Reports: Anemia Immunologic History: Reports: None Oncologic (Cancer) History: Reports: None Dermatologic History: Reports: None - Infectious Disease History Infectious Disease History: Reports: None - Past Surgical History Head Surgeries/Procedures: Reports: None Cardiovascular Surgical History: Reports: None GI Surgical History: Reports: EGD Musculoskeletal Surgical History: Reports: None Social & Family History - Family History Family Medical History: Noncontributory - Tobacco Use Smoking Status *Q: Former Smoker Used Tobacco, but Quit: Yes Month/Year Tobacco Last Used: 2018 - Caffeine Use Caffeine Use: Reports: Coffee - Recreational Drug Use Recreational Drug Use: No - Living Situation & Occupation Living situation: Reports: with Family Occupation: Retired ED ROS GENERAL - Review of Systems Review Of Systems: Comprehensive ROS is negative, except as noted in HPI. ED EXAM, GENERAL - Physical Exam Exam: See Below Exam Limited By: No Limitations General Appearance: Alert, WD/WN, Mild Distress Eye Exam: Bilateral Eye: EOMI, Normal Inspection, PERRL Ears: Normal External Exam, Normal Canal, Hearing Grossly Normal, Normal TMs Nose: Normal Inspection, Normal Mucosa, No Blood Throat/Mouth: Normal Inspection, Normal Lips, Normal Teeth, Normal Gums, Normal Oropharynx, Normal Voice, No Airway Compromise Head: Atraumatic, Normocephalic Neck: Normal Inspection, Supple, Non-Tender, Full Range of Motion Respiratory/Chest: No Respiratory Distress, Lungs Clear, Normal Breath Sounds, No Accessory Muscle Use, Chest Non-Tender Cardiovascular: Normal Peripheral Pulses, Regular Rate, Rhythm, No Edema, No Gallop, No JVD, No Murmur, No Rub GI/Abdominal: Normal Bowel Sounds, Soft, Non-Tender, No Organomegaly, No Distention, No Abnormal Bruit, No Mass (Female) Exam: Deferred Rectal (Female) Exam: Deferred Back Exam: Normal Inspection, Full Range of Motion, NT Extremities: Normal Inspection, Normal Range of Motion, Non-Tender, Normal Capillary Refill, No Pedal Edema Neurological: Alert, Oriented, CN II-XII Intact, Normal Cognition, Normal Gait, Normal Reflexes, No Motor/Sensory Deficits Psychiatric: Normal Affect, Normal Mood Skin Exam: Warm, Dry, Intact, Normal Color, No Rash Lymphatic: No Adenopathy Course - Vital Signs Last Recorded V/S: Last Vital Signs Temp 36.6 C 05/25/20 12:54 Pulse 72 05/25/20 12:54 Resp 18 05/25/20 12:54 BP 113/56 L 05/25/20 12:54 Pulse Ox 96 05/25/20 12:54 - Orders/Labs/Meds Orders: Active Orders 24 hr Category Date Time Status Chest 2V [CR] Urgent Exams 05/25/20 13:11 Ordered CULTURE BLOOD [BC] Stat Lab 05/25/20 12:53 Ordered Labs: Laboratory Tests 05/25/20 05/25/20 05/25/20 Range/Units 12:58 13:07 13:07 WBC 6.8 (5.0-10.0) 10^3/uL RBC 4.88 (4.2-5.4) 10^6/uL Hgb 14.4 (12.0-16.0) g/dL Hct 43.8 (37.0-47.0) % MCV 89.8 (80-100) fL MCH 29.5 (27.0-34.0) pg MCHC 32.9 L (33.0-35.0) g/dL Plt Count 262 (150-450) 10^3/uL Neut % (Auto) 73.1 (42.2-75.2) % Lymph % (Auto) 13.8 L (20.5-50.1) % [place] % (Auto) 5.6 (2-8) % Eos % (Auto) 7.2 H (1.0-3.0) % Baso % (Auto) 0.3 (0.0-1.0) % Sodium 139 (136-145) mmol/L Potassium 4.1 (3.5-5.1) mmol/L Chloride 105 (98-107) mmol/L Carbon Dioxide 26 (21-32) mmol/L Anion Gap 12.1 (7-13) mEq/L BUN 16 (7-18) mg/dL Creatinine 0.92 (0.55-1.02) mg/dL Est Cr Clr Drug Dosing 57.78 mL/min Estimated GFR (MDRD) > 60 BUN/Creatinine Ratio 17.4 (No establ ref range) Glucose 106 H (74-99) mg/dL Lactic Acid (0.4-2.0) mmol/L Calcium 8.6 (8.5-10.1) mg/dL Total Bilirubin 0.4 (0.2-1.0) mg/dL AST 15 (15-37) U/L ALT 17 (14-59) U/L Alkaline Phosphatase 69 (46-116) U/L Total Protein 7.3 (6.4-8.2) g/dL Albumin 3.6 (3.4-5.0) g/dL Globulin 3.7 Albumin/Globulin Ratio 1.0 Urine Color Yellow (YELLOW) Urine Appearance Clear (CLEAR) Urine pH 5.5 (5.0-9.0) Ur Specific [place] 1.020 (1.005-1.030) Urine Protein Negative (NEGATIVE) Urine Glucose (UA) Negative (NEGATIVE) Urine Ketones Negative (NEGATIVE) Urine Occult Blood Negative (NEGATIVE) Urine Nitrite Negative (NEGATIVE) Urine Bilirubin Negative (NEGATIVE) Urine Urobilinogen 0.2 (0.2-1.0) mg/dL Ur Leukocyte Esterase Negative (NEGATIVE) 05/25/20 Range/Units 13:07 WBC (5.0-10.0) 10^3/uL RBC (4.2-5.4) 10^6/uL Hgb (12.0-16.0) g/dL Hct (37.0-47.0) % MCV (80-100) fL MCH (27.0-34.0) pg MCHC (33.0-35.0) g/dL Plt Count (150-450) 10^3/uL Neut % (Auto) (42.2-75.2) % Lymph % (Auto) (20.5-50.1) % [place] % (Auto) (2-8) % Eos % (Auto) (1.0-3.0) % Baso % (Auto) (0.0-1.0) % Sodium (136-145) mmol/L Potassium (3.5-5.1) mmol/L Chloride (98-107) mmol/L Carbon Dioxide (21-32) mmol/L Anion Gap (7-13) mEq/L BUN (7-18) mg/dL Creatinine (0.55-1.02) mg/dL Est Cr Clr Drug Dosing mL/min Estimated GFR (MDRD) BUN/Creatinine Ratio (No establ ref range) Glucose (74-99) mg/dL Lactic Acid 1.2 (0.4-2.0) mmol/L Calcium (8.5-10.1) mg/dL Total Bilirubin (0.2-1.0) mg/dL AST (15-37) U/L ALT (14-59) U/L Alkaline Phosphatase (46-116) U/L Total Protein (6.4-8.2) g/dL Albumin (3.4-5.0) g/dL Globulin Albumin/Globulin Ratio Urine Color (YELLOW) Urine Appearance (CLEAR) Urine pH (5.0-9.0) Ur Specific [place] (1.005-1.030) Urine Protein (NEGATIVE) Urine Glucose (UA) (NEGATIVE) Urine Ketones (NEGATIVE) Urine Occult Blood (NEGATIVE) Urine Nitrite (NEGATIVE) Urine Bilirubin (NEGATIVE) Urine Urobilinogen (0.2-1.0) mg/dL Ur Leukocyte Esterase (NEGATIVE) Departure - Departure Time of Disposition: 13:51 Disposition: Home, Self-Care 01 Condition: Fair Clinical Impression: Gastroenteritis URI (upper respiratory infection) Qualifiers: URI type: unspecified URI Qualified Code(s): J06.9 - Acute upper respiratory infection, unspecified - Discharge Information *PRESCRIPTION DRUG MONITORING PROGRAM REVIEWED*: Not Applicable *COPY OF PRESCRIPTION DRUG MONITORING REPORT IN PATIENT TEO: Not Applicable Instructions: Upper Respiratory Infection, Adult, [id number], Viral Gastroenteritis, Adult, [id number] Forms: ED Department Discharge Care Plan Goals: The patient was advised of the examination, lab and x-ray results during the visit. The patient was encouraged to continue to take [id number] medications for temporary symptom relief. If the patient has any additional symptoms or concerns, the patient should either return to the emergency department or visit her primary care facility. Sepsis Event Note (ED) - Evaluation Sepsis Screening Result: No Definite Risk - Focused Exam Vital Signs: Vital Signs Temp Pulse Resp BP Pulse Ox 05/25/20 12:54 36.6 C 72 18 113/56 L 96 - My Orders Last 24 Hours: My Active Orders 05/25/20 12:53 CULTURE BLOOD [BC] Stat 05/25/20 13:11 Chest 2V [CR] Urgent - Assessment/Plan Last 24 Hours: My Active Orders 05/25/20 12:53 CULTURE BLOOD [BC] Stat 05/25/20 13:11 Chest 2V [CR] Urgent
[2020-05-25 13:35] LABS: ANION GAP 12.1 mEq/L (7-13); CHLORIDE,CL 105 mmol/L (98-107); SODIUM,NA 139 mmol/L (136-145)
--- NOTE | 2020-05-25 13:54 | CR ---
EXAMINATION: Chest 2V SEX: Female AGE: 59 years CLINICAL HISTORY: 59-year-old female emergency department complaining of COUGH (recent CT chest 01 February 2020 this smoker with chronic cough revealed "poorly marginated 21 mm vascular parenchymal lung nodule/mass, SOSA; and, smaller 15 mm diameter parenchymal lung nodule, RUL". Interpretation: 1. Chronic mild peribronchial "cuffing" with air trapping characteristic of reactive airway disease (RAD). 2. Multilevel disc degeneration with hypertrophic spondylosis several levels thoracic spine. Osteopenia. Subtle increased upper lobe density felt to represent superimposition of costochondral cartilage possibly reflecting "upper lobe nodule/mass lesions" reported CT scan February 15, 2020. No change since 22 November. 3. No new parenchymal lung mass, hilar/mediastinal lymphadenopathy (normal tracheobronchial airway), focal lobar infiltrate/atelectasis or dependent pleural effusion. 4. Normal cardiac silhouette. No pulmonary vascular congestion, new cephalization flow or alveolar edema. 5. No pneumothorax or pneumomediastinum. CONCLUSION: No acute new cardiopulmonary abnormality since comparison film [address] report 01 February 2020.
== END 2020-05-25 13:55 | disposition home or self-care (01) ==
LOC: DL.ED 12:46
DX: J06.9 Acute upper respiratory infection, unspecified (principal); K52.9 Noninfective gastroenteritis and colitis, unspecified; J44.9 Chronic obstructive pulmonary disease, unspecified; G62.9 Polyneuropathy, unspecified; Z88.6 Allergy status to analgesic agent; Z88.5 Allergy status to narcotic agent; Z88.8 Allergy status to other drugs, medicaments and biological substances; Z79.899 Other long term (current) drug therapy; Z87.891 Personal history of nicotine dependence
CPT/HCPCS: 36415; 71046; 80053; 81003; 83605; 85025; 87040; 99282; 99284-25

== ENCOUNTER 2020-08-25 07:06 | Day surgery (SDC) | payer MEDICAID ==
[~2020-08-25 07:06] MED LIST: Midazolam 1 MG/ML 2 ML SDV ONE; fentaNYL 100 MCG/2 ML SDV ONE
[2020-08-25] MEDS ORDERED: fentaNYL 100 MCG/2 ML SDV IV ONE ×3 (07:07→08:26)
[2020-08-25] MEDS ORDERED: Midazolam 1 MG/ML 2 ML SDV IV ONE ×3 (07:07→08:27)
[2020-08-25] MEDS ORDERED: Dextrose 5%-0.45% NaCl 1,000 ML IV SCH (07:15)
[2020-08-25 11:31] VITALS: BP 100/53; PULSE 67
--- NOTE | 2020-08-25 11:49 | OR ---
DATE: 08/25/2020 PROCEDURES: Esophagogastroduodenoscopy and multiple pinch biopsies. INSTRUMENT USED: [id number]-HQ190 Olympus video panendoscope. PREMEDICATIONS: No oral or topical anesthesia used. Fentanyl 100 mcg intravenous, Versed 2 mg intravenous, nasal O2 cannula. The procedure was done under pulse oximetry, BP recording, and cardiac cath lab radiology technologist. 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 Esophagogastroduodenoscopy is performed for detection of any active erosive lesions, Olson biopsies for any evidence of dysplasia, H pylori status to be determined, small bowel biopsies to be obtained for any evidence of celiac disease, endoscopic hemostasis therapy if needed. PROCEDURE IN DETAIL: The scope was passed with ease. Adequate visualization of the esophagus was made from proximal to distal areas. No upper esophageal lesions identified. No distal esophageal stricture. No uphill or downhill esophageal varices. No Leela-Cullen tear. No evidence of erosive esophagitis by [place] criteria. No esophageal polyp or tumor mass identified. [place] columnar epithelium was noted at around 38 cm distal to the oral verge, 4- quadrant biopsies were obtained and sent for any evidence of dysplasia. No proximal gastric varices noted. Gastric fundus examination by retroflexion showed no polypoid lesions. No gastric ulcer, malignant mass, or vascular ectasia identified. Patchy erythema of the antrum was noted. Multiple pinch biopsies were taken from the gastric antrum and proximal body and sent for PyloriTek test for H pylori and histopathology. Duodenal bulb showed no ulcer. Visualized second part of the duodenum was unremarkable. Multiple pinch biopsies 4 in number, were taken from different areas of the 2nd part of duodenum. Tissues were also obtained from the duodenal bulb at 9 and 12 o'clock positions and sent for any histopathologic evidence of celiac disease. No bleeding was noted from any of the visualized areas. Photographs were taken of the duodenal bulb, gastric antrum, fundus, and distal esophagus. IMPRESSION: Patchy antral gastritis. The patient tolerated the procedure well. [facility] /[id number]
--- NOTE | 2020-08-25 12:28 | LETTER ---
08/25/2020 RE: HAZEL LEBRON : 1960 Christina Lion [facility] [address] [place] [address] Dear Ms. Lion: Ms. Hazel Lebron had esophagogastroduodenoscopy done this morning and she tolerated the procedure well. I herewith send a copy of the endoscopy note and photographs for your review. Thank you. Sincerely, [facility] /[id number]
== END 2020-08-25 10:45 | disposition home or self-care (01) ==
LOC: DL.ENDO 07:06
PROVIDERS: ATTEND Internal Medicine Gastroenterology
DX: K29.50 Unspecified chronic gastritis without bleeding (principal); K31.89 Other diseases of stomach and duodenum; F17.210 Nicotine dependence, cigarettes, uncomplicated; J44.9 Chronic obstructive pulmonary disease, unspecified; K21.9 Gastro-esophageal reflux disease without esophagitis; K57.30 Diverticulosis of large intestine without perforation or abscess without bleeding; Z87.19 Personal history of other diseases of the digestive system
CPT/HCPCS: 43239; 87077; J2250; J3010; J7042

== ENCOUNTER 2020-11-24 05:41 | Day surgery (SDC) | payer MEDICAID, OTHER ==
--- NOTE | 2020-09-01 12:24 | LETTER ---
09/01/2020 RE: HAZEL LEBRON : 1960 RAUL [place] [facility] [address] [place] [id number] Dear Ms. Cherry: Ms. Hazel Lebron had esophagogastroduodenoscopy done and she tolerated the procedure well. I herewith send a copy of the endoscopy note and photographs for your review. Thank you. Sincerely, [facility] /[id number]
[~2020-11-24 05:41] MED LIST changes: +Dextrose 5%-0.45% NaCl 1,000 ML IV SCH; -Midazolam 1 MG/ML 2 ML SDV ONE; +Sodium Chloride 0.9% 10 ML Syringe FLUSH PRN; -fentaNYL 100 MCG/2 ML SDV ONE
[2020-11-24 06:01] VITALS: BP 111/50; PULSE 59
[2020-11-24] MEDS ORDERED: Midazolam 1 MG/ML 2 ML SDV ONE (06:10)
[2020-11-24] MEDS ORDERED: fentaNYL 100 MCG/2 ML SDV ONE (06:11)
== END 2020-11-24 06:47 | disposition home or self-care (01) ==
LOC: DL.ENDO 05:41
PROVIDERS: ATTEND Internal Medicine Gastroenterology
DX: K57.30 Diverticulosis of large intestine without perforation or abscess without bleeding (principal); Z53.09 Procedure and treatment not carried out because of other contraindication; K21.9 Gastro-esophageal reflux disease without esophagitis; Z88.8 Allergy status to other drugs, medicaments and biological substances
CPT/HCPCS: J7042

== ENCOUNTER 2020-11-29 05:28 | Day surgery (SDC) | payer MEDICAID, OTHER ==
[2020-11-29] MEDS ORDERED: Midazolam 1 MG/ML 2 ML SDV IV ONE ×4 (05:29→06:48)
[2020-11-29] MEDS ORDERED: fentaNYL 100 MCG/2 ML SDV IV ONE ×3 (05:29→06:34)
[2020-11-29] MEDS ORDERED: Dextrose 5%-0.45% NaCl 1,000 ML IV SCH (05:30)
[2020-11-29] MEDS ORDERED: fentaNYL 100 MCG/2 ML SDV ONE (06:11)
[2020-11-29] MEDS ORDERED: Midazolam 1 MG/ML 2 ML SDV ONE (06:11)
--- NOTE | 2020-11-29 07:29 | OR ---
DATE: 11/29/2020 PROCEDURE: Total colonoscopy. INSTRUMENT USED: [id number]-[id number] Olympus video colonoscope. PREMEDICATIONS: Fentanyl 100 mcg intravenous, Versed 2.5 mg intravenous. Nasal O2 cannula, mask. INDICATION: The patient with Hemoccult positive stools. Colonoscopic examination is done for detection of any polypoid lesions and removal, endoscopic hemostasis therapy if needed. DESCRIPTION OF PROCEDURE: Initial rectal exam was unremarkable. Rigid anoscopy was normal. The colonoscope was passed with ease. Numerous scattered wide- mouthed diverticula were noted in the distal left colon along with deformity. The scope was passed with ease up to the ileocecal area. Photographs were taken of the normal-appearing cecum, identified by landmarks of appendiceal orifice and double-bulged ileocecal folds. No bleeding was noted from any of the visualized areas at the commencement of the examination. There was moderate amount of fecal material that had to be aspirated. [place] scale 2 in all the regions, total score 6. No stricture. No vascular ectasia. No large isolated ulcerations seen. No evidence of diffuse inflammatory bowel disease in the form of friability, contact bleeding, or ulcerations. No polyp or tumor mass identified. Probing the proximal sides of folds and flexures using adequate distention and clearing up the stool material, withdrawal of the scope was made. Cecum to rectum time over 6 minutes. No bleeding was noted from any of the visualized areas at the completion of examination. IMPRESSION: Diverticulosis. The patient tolerated the procedure well. [facility] /[id number]
[2020-11-29 08:56] VITALS: BP 96/46; PULSE 52
--- NOTE | 2020-11-29 08:59 | LETTER ---
11/29/2020 RE: HAZEL LEBRON : 1960 RAUL [place] [facility] [address] [place] [address] Dear Ms. Cherry: Ms. Hazel Lebron had colonoscopic examination done this morning, and she tolerated the procedure well. I herewith send a copy of the endoscopy note and photographs for your review. Thank you. Sincerely, [facility] /[id number]
== END 2020-11-29 08:57 | disposition home or self-care (01) ==
LOC: DL.ENDO 05:28
PROVIDERS: ATTEND Internal Medicine Gastroenterology
DX: K57.30 Diverticulosis of large intestine without perforation or abscess without bleeding (principal); Z79.899 Other long term (current) drug therapy
CPT/HCPCS: 45378; J2250; J3010; J7042

== ENCOUNTER 2021-11-02 15:22 | Emergency (ER) | payer BC ==
[2021-11-02 15:36] VITALS: BP 124/55; PULSE 88
[2021-11-02] MEDS ORDERED: Sodium Chloride 0.9% 10 ML Syringe FLUSH PRN (15:40)
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
[2021-11-02 16:15] LABS: ANION GAP 12.2 mEq/L (7-13); CHLORIDE,CL 108 mmol/L (98-107); SODIUM,NA 147 mmol/L (136-145)
== END 2021-11-02 18:00 | disposition home or self-care (01) ==
LOC: DL.ED 15:22
DX: L03.213 Periorbital cellulitis (principal); K21.9 Gastro-esophageal reflux disease without esophagitis; J44.9 Chronic obstructive pulmonary disease, unspecified; Z88.5 Allergy status to narcotic agent; Z88.8 Allergy status to other drugs, medicaments and biological substances; Z79.899 Other long term (current) drug therapy
CPT/HCPCS: 36415; 80053; 85025; 96365; 99283; J3370; J7040

== ENCOUNTER 2022-03-08 06:20 | Day surgery (SDC) | payer BC, MEDICAID ==
[~2022-03-08 06:20] MED LIST changes: -Dextrose 5%-0.45% NaCl 1,000 ML IV SCH; +Midazolam 1 MG/ML 2 ML SDV ONE; -Sodium Chloride 0.9% 10 ML Syringe FLUSH PRN; +fentaNYL 100 MCG/2 ML SDV ONE
[2022-03-08] MEDS ORDERED: Midazolam 1 MG/ML 2 ML SDV IV ONE ×3 (06:21→07:39)
[2022-03-08] MEDS ORDERED: fentaNYL 100 MCG/2 ML SDV IV ONE ×3 (06:21→07:38)
[2022-03-08] MEDS ORDERED: Dextrose 5%-0.45% NaCl 1,000 ML IV SCH (06:30)
[2022-03-08 11:38] VITALS: BP 113/53; PULSE 63
== END 2022-03-08 09:40 | disposition home or self-care (01) ==
LOC: DL.ENDO 06:20
PROVIDERS: ATTEND Internal Medicine Gastroenterology
DX: K29.60 Other gastritis without bleeding (principal); K31.89 Other diseases of stomach and duodenum; K31.A0 Gastric intestinal metaplasia, unspecified; J44.9 Chronic obstructive pulmonary disease, unspecified; K21.9 Gastro-esophageal reflux disease without esophagitis; K57.30 Diverticulosis of large intestine without perforation or abscess without bleeding; M19.90 Unspecified osteoarthritis, unspecified site; R32 Unspecified urinary incontinence; D72.820 Lymphocytosis (symptomatic); Z88.6 Allergy status to analgesic agent; Z96.652 Presence of left artificial knee joint; Z87.891 Personal history of nicotine dependence; Z01.812 Encounter for preprocedural laboratory examination; Z20.822 Contact with and (suspected) exposure to COVID-19
CPT/HCPCS: 87077; J2250; J3010; J7042; U0002

== ENCOUNTER 2022-04-08 16:40 | Emergency (ER) | payer MEDICAID ==
[2022-04-08 16:59] VITALS: BP 125/64; PULSE 72
== END 2022-04-08 18:26 | disposition home or self-care (01) ==
LOC: DL.ED 16:40
DX: S00.03XA Contusion of scalp, initial encounter (principal); J45.909 Unspecified asthma, uncomplicated; Z88.6 Allergy status to analgesic agent; Z88.5 Allergy status to narcotic agent; Z79.899 Other long term (current) drug therapy; W01.10XA Fall on same level from slipping, tripping and stumbling with subsequent striking against unspecified object, initial encounter
CPT/HCPCS: 70450; 99283; 99284-25

== ENCOUNTER 2023-07-22 08:25 | Day surgery (SDC) | payer BC, OTHER ==
[2023-07-22] MEDS ORDERED: Lactated Ringers 1,000 ML IV SCH (08:30)
[2023-07-22] MEDS ORDERED: ceFAZolin 2 GM Vial IVPUSH ONE (08:30)
[2023-07-22] MEDS ORDERED: Bupivacaine 0.5% 30 ML SDV ONE (08:44)
[2023-07-22] MEDS ORDERED: Lidocaine 1% 30 ML SDV ONE (08:44)
[2023-07-22] MEDS: Sodium Chloride 0.9% 10 ML Syringe FLUSH PRN ×2 (08:59→09:00)
[2023-07-22] MEDS ORDERED: ceFAZolin 2 GM Vial ONE (09:35)
[2023-07-22] MEDS ORDERED: Bupivacaine 0.5% 30 ML SDV INJECT ONE (10:11)
[2023-07-22] MEDS ORDERED: Lidocaine 1% 30 ML SDV INJECT ONE (10:11)
[2023-07-22] MEDS ORDERED: Albuterol 6.7 GM Inhaler INH PRN (11:37)
[2023-07-22] MEDS ORDERED: Non-Formulary Medication 1 Each (Nicotine Polacrilex 2 MG Gum) CHEW PRN (11:37)
[2023-07-22 12:23] VITALS: PULSE 50
[2023-07-22] MEDS ORDERED: Albuterol 0.083% 2.5 MG/3 ML Neb Soln INH PRN (12:53)
[2023-07-22] MEDS ORDERED: Gabapentin 300 MG Cap PO SCH (14:00)
[2023-07-22 16:10] VITALS: BP 106/55
[2023-07-22] MEDS ORDERED: Formoterol/Mometasone 200-5 MCG 8.8 GM Inhaler IH SCH (21:00)
[2023-07-23] MEDS ORDERED: Pantoprazole 40 MG Tab.CR PO SCH (06:00)
[2023-07-23] MEDS ORDERED: SOLIFENACIN SUCCINATE 10 MG PO SCH (09:00)
[2023-07-23] MEDS ORDERED: Cholecalciferol (Vitamin D3) 25 MCG Tab PO SCH (09:00)
[2023-07-23] MEDS ORDERED: Non-Formulary Medication 1 Each (Tiotropium [Spiriva Handihaler] 18 MCG Cap) INH SCH (09:00)
== END 2023-07-22 13:30 | disposition home or self-care (01) ==
LOC: DL.SDS 08:25
PROVIDERS: ATTEND Podiatrist Foot & Ankle Surgery
DX: M20.12 Hallux valgus (acquired), left foot (principal); M21.612 Bunion of left foot; J45.909 Unspecified asthma, uncomplicated; F32.A Depression, unspecified; G89.29 Other chronic pain; J44.9 Chronic obstructive pulmonary disease, unspecified; K21.9 Gastro-esophageal reflux disease without esophagitis; M79.7 Fibromyalgia; Z88.8 Allergy status to other drugs, medicaments and biological substances; Z79.899 Other long term (current) drug therapy; Z88.5 Allergy status to narcotic agent
CPT/HCPCS: 28296; 82947; J0690; J3490; J7120; 01470; 76000

== ENCOUNTER 2024-09-10 06:35 | Day surgery (SDC) | payer OTHER, MEDICARE ==
[~2024-09-10 06:35] MED LIST changes: +Midazolam 1 MG/ML 2 ML SDV IV ONE; +fentaNYL 100 MCG/2 ML SDV IV ONE
[2024-09-10] MEDS: Dextrose 5%-0.45% NaCl 1,000 ML IV SCH (06:54)
[2024-09-10] MEDS: fentaNYL 100 MCG/2 ML SDV IV ONE ×2 (07:22→07:23)
[2024-09-10] MEDS: Midazolam 1 MG/ML 2 ML SDV IV ONE ×2 (07:23→07:24)
[2024-09-10 08:43] VITALS: BP 103/52; PULSE 55
== END 2024-09-10 09:17 | disposition home or self-care (01) ==
LOC: DL.ENDO 06:35
PROVIDERS: ATTEND Internal Medicine Gastroenterology
DX: K29.50 Unspecified chronic gastritis without bleeding (principal); K31.A11 Gastric intestinal metaplasia without dysplasia, involving the antrum; Z88.8 Allergy status to other drugs, medicaments and biological substances
CPT/HCPCS: 43239; J2250; J3010; J7799; 88305; 88342